=== PATIENT | female | born 1975 | race Caucasian/White ===

== ENCOUNTER 2017-10-21 07:45 | Emergency (ER) | payer OTHER ==
[~2017-10-21] VITALS: Ht 157.5 cm; Wt 106.1 kg
[~2017-10-21 07:45] MED LIST: CYCLOBENZAPRINE10 MG PO; LOTRIMIN AF24 GM TOP; METFORMIN HCL500 MG PO; NAPROXEN500 MG PO; PARLODEL2.5 MG PO
[2017-10-21] MEDS ORDERED: NAPROSYN500 MG PO (08:02)
[2017-10-26] MEDS ORDERED: TYLENOL WITH C1 EAC1 PO (15:39)
[2017-12-14] MEDS ORDERED: NAPROXEN500 MG PO (13:44)
[2017-12-14] MEDS ORDERED: MULTI VITAMIN1 EACH PO (13:45)
== END 2017-10-21 08:12 | disposition home or self-care (01) ==
LOC: ED 07:45
PROC: 2W38X1Z Immobilization of Right Upper Extremity using Splint (ICD-10-PCS; principal; 2017-10-21)
DX: M65.4 Radial styloid tenosynovitis [de Quervain] (principal); Z88.5 Allergy status to narcotic agent; Z88.8 Allergy status to other drugs, medicaments and biological substances; Z79.899 Other long term (current) drug therapy
CPT/HCPCS: 29125; 99282

== ENCOUNTER 2017-11-23 09:05 | Observation (INO) | payer OTHER ==
[~2017-11-23] VITALS: Ht 157.5 cm; Wt 112.0 kg
[~2017-11-23 09:05] MED LIST changes: +NAPROSYN500 MG PO; +TYLENOL WITH C1 EAC1 PO
--- NOTE | 2017-11-24 09:37 | OR ---
[facility] [address] [place], [place] [address] Signed DATE OF OPERATION: 11/23/2017 SURGEON: Demetria Rainey MD PREOPERATIVE DIAGNOSES: 1. Positive superior anterior margin left breast cancer, upper outer quadrant. 2. Wound abscess and breast cellulitis. POSTOPERATIVE DIAGNOSES: 1. Positive superior anterior margin left breast cancer, upper outer quadrant. 2. Wound abscess and breast cellulitis. PROCEDURES: 1. Re-excision superior anterior margin, left breast lumpectomy site. 2. Deep wound cultures. ESTIMATED BLOOD LOSS: None. INDICATIONS: Jessica is a 42-year-old female, who came to us for her left breast lumpectomy and sentinel lymph node biopsy just a couple of weeks ago. She thought the Tylenol with Codeine #4 was too strong and was using just her Tylenol with good results. 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 The pathologist called and he said on the superior anterior margin, there was a very tiny area that came out positive. In addition, the two sentinel lymph nodes came back, one was completely uninvolved, the other had 4 tiny . I had seen Jessica and her mom in the office the week before last prior to being out of town. Her wound was healing well and we had planned to take her back for re-excision of that superior anterior margin. In the meantime, she called the office yesterday and was worried about some surrounding erythema and a little bit of drainage from the wound. I explained to Jessica, I wanted you to come into the hospital this morning for surgery and we could open that wound, evacuate all the fluid and excise the superior margin. After reviewing the intraoperative findings, I decided I was going to keep her in the hospital at least overnight, maybe longer to see improvement in the cellulitis and make sure she does not have any temperature spikes. I met with Jessica and her mom in our preop area and we reviewed our breast exam and I explained to them my concern. We marked that left breast appropriately. After this conversation, she was taken into the operating room. Electronically Signed By: DEMETRIA RAINEY MD 11/24/17 0937 PATIENT NAME: JESSICA HOWARD OPERATIVE REPORT DATE OF : 75 REPORT #: [id number] PHYSICIAN: DEMETRIA RAINEY MD PCP: YOLANDA GUERRA PAC REPORT IS CONFIDENTIAL AND NOT TO BE RELEASED WITHOUT AUTHORIZATION [facility] [address] [place], [place] [address] Signed PROCEDURE NOTE: Jessica was taken into the operating room and placed in the supine position under general endotracheal tube anesthesia. She was given preoperative antibiotics along with subcutaneous heparin. SCDs were utilized. She was then prepped and draped in the usual sterile fashion. We sharply opened her previous incision and evacuated at least 5 mL or more of a turbid fluid. Cultures were taken deep in the wound. We examined the extend of the wound and then we used our 20 blade knife to excise the skin and underlying breast tissue all the way on the superior anterior margin all the way down to the bottom of that wound. That specimen was then marked appropriately and passed off the field. Hemostasis was easily achieved with the help of the cautery. Local anesthetic was injected into the wound. We used 3-0 Monocryl subcuticular interrupted sutures to close the medial lateral aspect of that curvilinear incision. The midportion incision was left open. We used full-strength Dakin soaked gauze to pack that wound completely. This was covered with a dry ABD and tape. After this, Jessica was awakened from anesthesia, extubated in the OR, and taken to recovery room in stable condition. Demetria Rainey MD ALB/MODL /[id number] cc: AMY Myers MD Copies: DEMETRIA RAINEY MD ~ Electronically Signed By: DEMETRIA RAINEY MD 11/24/17 0937 PATIENT NAME: JESSICA HOWARD OPERATIVE REPORT DATE OF : 75 REPORT #: [id number] PHYSICIAN: DEMETRIA RAINEY MD PCP: YOLANDA GUERRA PAC REPORT IS CONFIDENTIAL AND NOT TO BE RELEASED WITHOUT AUTHORIZATION
[2017-11-24] MEDS ORDERED: CLEOCIN HCL300 MG PO (10:42)
[2017-11-24] MEDS ORDERED: SODIUM CHLORI1000 ML IRRIGATION (10:44)
[2017-11-24] MEDS ORDERED: MUPIROCIN22 GM TOP (10:45)
--- NOTE | 2017-11-26 11:36 | DS ---
[facility] [address] [place] [place] [address] Signed ADMISSION DATE: 11/23/2017 DISCHARGE DATE: 11/24/2017 FINAL DIAGNOSES: 1. Left breast cancer. 2. Left breast abscess/cellulitis. PROCEDURES: 1. Incision and drainage, left breast. 2. Re-excision superior anterior margin, left breast, upper outer quadrant. HISTORY OF PRESENT ILLNESS: Krupa is a 42-year-old female, who came to us with a left breast cancer and underwent her lumpectomy with sentinel lymph node biopsy. Unfortunately, the superior anterior margin was positive, although was very very slight according to the pathologist. We had made plans in the office to bring Krupa back for re-excision of that margin. The day before her surgery, she called to say that there was drainage from the center portion of the wound along with erythema around the nipple areolar complex as well as inferiorly to the nipple areolar complex. I explained to Krupa that she should maintain her OR appointment the following day. In the preop area, I met with Krupa and her mom and sure enough she had a very thin area in the center of the wound allowing for her infection. I explained to Krupa and her mom, we would take her to the operating room, we will take cultures and clean that out and we take the margin superior and anteriorly. We also discussed staying in a hospital at least overnight for some IV antibiotics and wound care and if we were happy the next day or the day after, we would allow Krupa to go home with her mom and her family with ongoing wound care at home and p.o. antibiotics. They had expressed understanding and wished to proceed. HOSPITAL COURSE: Krupa was taken into the operating room and we sharply opened up the wound and took our deep wound cultures. It was full of at least 5 mL of turbid fluid consistent with her infection. We then excised the superior portion of that skin along with a wedge of skin just under a centimeter thick along the entire anterior margin all the way down to the bottom of the wound. That was marked appropriately and passed off the field. We used Dakin soaked gauze to pack the wound and brought her into the hospital overnight. She received Ancef for the procedure and clindamycin overnight IV. Of course, the cultures are still pending this morning. The cultures and the Gram-stain are still pending this morning. In the meantime, Krupa is doing wonderful. I had a long discussion with Krupa and her mother as well as her nurse, Judy. They feel very comfortable going home, doing the wound care along with p.o. clindamycin. She has been thoroughly instructed on the wound care. She is going to use Dakin's for 3 more days and switch over to saline and Electronically Signed By: DEMETRIA RAINEY MD 11/26/17 1136 PATIENT NAME: RAJANI HOWARD DISCHARGE SUMMARY DATE OF : 75 REPORT #: [id number] PHYSICIAN: DEMETRIA RAINEY MD PCP: YOLANDA GUERRA PAC REPORT IS CONFIDENTIAL AND NOT TO BE RELEASED WITHOUT AUTHORIZATION [address] [address] Signed she will cover that with just a dry ABD in her braw and she will use her Tylenol with Codeine #4 before the dressing changes. We used Bactroban ointment around that wound as well. DISCHARGE PLANS AND MEDICATIONS: Krupa will be discharged home as above. She will do her wound care as above with the Bactroban ointment and shower with soap and water directly into that wound. She is welcome to perform her activities of daily living including walking up and down stairs and showering and bathing as needed. She will follow her regular diet. She should not lift over about 25 pounds or so. Of course, with an open wound, we will have to keep her off work for now. Eventually, this will heal in secondarily. She will actually have a good cosmetic result and in due time she is going to need to be referred to medical oncologist and the radiation oncologist. I have reviewed this with Krupa and her mom. They have expressed understanding and agreed the above plan. Demetria Rainey MD ALB/MODL /[id number] cc: Bolivar Guerra Copies: ~ Electronically Signed By: DEMETRIA RAINEY MD 11/26/17 1136 PATIENT NAME: RAJANI HOWARD DISCHARGE SUMMARY DATE OF : 75 REPORT #: [id number] PHYSICIAN: DEMETRIA RAINEY MD PCP: YOLANDA GUERRA PAC REPORT IS CONFIDENTIAL AND NOT TO BE RELEASED WITHOUT AUTHORIZATION
[2017-12-14] MEDS ORDERED: NAPROXEN500 MG PO (13:44)
[2017-12-14] MEDS ORDERED: MULTI VITAMIN1 EACH PO (13:45)
== END 2017-11-24 11:20 | disposition home or self-care (01) ==
LOC: DS 09:05 → MS 09:06 → DS 09:06 → MS 11-24 11:20
PROVIDERS: ADMIT Colon & Rectal Surgery
PROC: 0HBU0ZZ Excision of Left Breast, Open Approach (ICD-10-PCS; principal; 2017-11-23 10:30)
DX: C50.412 Malignant neoplasm of upper-outer quadrant of left female breast (principal); T81.4XXA Infection following a procedure, initial encounter; N61.1 Abscess of the breast and nipple; E78.5 Hyperlipidemia, unspecified; E66.01 Morbid (severe) obesity due to excess calories; R73.01 Impaired fasting glucose; Z68.42 Body mass index [BMI] 45.0-49.9, adult; Z79.899 Other long term (current) drug therapy; Z17.0 Estrogen receptor positive status [ER+]; Z88.5 Allergy status to narcotic agent; Z79.1 Long term (current) use of non-steroidal anti-inflammatories (NSAID)
CPT/HCPCS: 00404; 36415; 80048; 83735; 84100; 84703; 85025; 87070; 87075; 87077; 87186; 87205; 88307; 96361; 96365; 96366; 96375; 96376; G0378; J0690; J1170; J1644; J2250; J2405; J2704; J2765; J3010; J7120

== ENCOUNTER 2019-07-16 21:29 | Emergency (ER) | payer OTHER ==
[~2019-07-16] VITALS: Ht 157.5 cm; Wt 102.1 kg
--- OUTSIDE RECORDS SUMMARY | ~2019-07-16 | XMS | Encounter Summary ---
Demographics + + + | Address | [address] | | | [place] [address] | + + + | Home Phone | | + + + | Preferred Language | Unknown | + + + | Marital Status | Single | + + + | Holiness Affiliation | Unknown | + + + | Race | Unknown | + + + | Ethnic Group | Unknown | + + + Author + + + | Author | [facility] | | | and [place] | + + + | Organization | [facility] | | | and [place] | + + + | Address | Unknown | + + + | Phone | Unavailable | + + + Support + + + + + | Name | Relationship | Address | Phone | + + + + + | Orly Patel | ECON | [address] | | | | | [place], [place] | | | | | [address] | | + + + + + Care Team Providers + +------+ + | Care Animal Rescuer Name | Role | Phone | + +------+ + | Fely Paris | PCP | | | PA | | | + +------+ + Encounter Details +--------+ + + + + | Date | Type | Department | Care Team | Description | +--------+ + + + + | 12/19/ | Imaging | [facility] | Provider, | | | 2018 | Exam | [facility] | Historical, MD [address] | | | | | [address]ING | [address] | | | | | [phone] | [place] [address] | | +--------+ + + + + Social History + +-------+ +--------+------+ | Tobacco Use | Types | Packs/Day | Years | Date | | | | | Used | | + +-------+ +--------+------+ | Never Assessed | | | | | + +-------+ +--------+------+ + + + | Sex Assigned at | Date Recorded | | | | + + + | Not on file | | + + + + + + + | Job Start Date | Occupation | Industry | + + + + | Not on file | Not on file | Not on file | + + + + + + + + | Travel History | Travel Start | Travel End | + + + + + + | No recent travel history available. | + + documented as of this encounter Plan of Treatment +--------+ + + + + | Date | Type | Specialty | Care Team | Description | +--------+ + + + + | 06/09/ | Appointment | Radiation Oncology | Yin Alex | | | 2019 | | | MD [facility] [address] | | | | | | [place] | | | | | | [address] | | | | | | | | +--------+ + + + + documented as of this encounter Procedures + +--------+ + + + | Procedure Name | Priori | Date/Time | Associated Diagnosis | Comments | | | ty | | | | + +--------+ + + + | KASSIDY TOMOSYN | Routin | 02/08/2017 | | Results for this | | SCREENING BILATERAL | e | 8:35 AM | | procedure are in the | | | | PDT | | results section. | + +--------+ + + + documented in this encounter Results KASSIDY Tomosynthesis Screening Bilateral (02/08/2017 8:35 AM PDT) + + | Specimen | + + | | + + + + + | Narrative | Performed At | + + + | External films for comparison only | [facility] | | | | | No results will be in the chart. | | + + + + +---------+ + + | Performing | Address | City/State/Zipcode | Phone Number | | Organization | | | | + +---------+ + + | [facility] | | | | + +---------+ + + documented in this encounter Visit Diagnoses Not on filedocumented in this encounter"
--- OUTSIDE RECORDS SUMMARY | ~2019-07-16 | XMS | Encounter Summary ---
Demographics + + + | Address | [address] | | | [place] [address] | + + + | Home Phone | | + + + | Preferred Language | Unknown | + + + | Marital Status | Single | + + + | Jew Affiliation | Unknown | + + + | Race | Unknown | + + + | Ethnic Group | Unknown | + + + Author + + + | Author | [facility] | | | and [place] | + + + | Organization | [facility] | | | and [place] [...] [place], [place] | | | | | [address] | | + + + + + Care Team Providers + +------+ + | Care Grapple Crew Leader Name | Role | Phone | + [...] [address] | | | | | [phone] | [place] [address] | | +--------+ + + + + [...] | | | MD [facility] [address] | | | | | | [place] | | | | | | [address] | | | | | | | | +--------+ + + + + documented as of this encounter Procedures + +--------+ + + + | Procedure Name | Priori | Date/Time | Associated Diagnosis | Comments | | | ty | | | | + +--------+ + + + | US BREAST LIMITED | Routin | 10/02/2017 | | Results for this | | LEFT | e | 3:05 PM | | procedure are in the | | | | PST | | results section. | + +--------+ + + + documented in this encounter Results US Breast Limited Left (10/02/2017 3:05 PM PST) + + | Specimen | + + [...]
--- OUTSIDE RECORDS SUMMARY | ~2019-07-16 | XMS | Encounter Summary ---
Demographics + + + | Address | [address] | | | [place] [address] | + + + | Home Phone | | + + + | Preferred Language | Unknown | + + + | Marital Status | Single | + + + | Voodoo Affiliation | Unknown | + + + | Race | Unknown | + + + | Ethnic Group | Unknown | + + + Author + + + | Author | [facility] | | | and [place] | + + + | Organization | [facility] | | | and [place] [...] [place], [place] | | | | | [address] | | + + + + + Care Team Providers + +------+ + | Care Software Qa System Specialist Name | Role | Phone | + [...] [address] | | | | | [phone] | [place] [address] | | +--------+ + + + + [...] [place] | | | | | | [address] | | | | | | | [...]
--- OUTSIDE RECORDS SUMMARY | ~2019-07-16 | XMS | Encounter Summary ---
Demographics + + + | Address | [address] | | | [place] [address] | + + + | Home Phone | | + + + | Preferred Language | Unknown | + + + | Marital Status | Single | + + + | Oriental Orthodox Affiliation | Unknown | + + + | Race | Unknown | + + + | Ethnic Group | Unknown | + + + Author + + + | Author | [facility] | | | and [place] | + + + | Organization | [facility] | | | and [place] | + + + | Address | Unknown | + + + | Phone | Unavailable | + + + Support + + + + + | Name | Relationship | Address | Phone | + + + + + | Orly Patel | ECON | [address] | | | | | [place] | | | | | [address] | | + + + + + Care Team Providers + +------+ + | Care Pyrotechnic Assembler Name | Role | Phone | + +------+ + | Fely Paris | PCP | | | PA | | | + +------+ + Reason for Visit Evaluate & Treat (Routine) + +--------+ + + + + | Status | Reason | Specialty | Diagnoses / | Referred By | Referred To | | | | | Procedures | Contact | Contact | + +--------+ + + + + | Authorized | | Radiation | Diagnoses | [facility] | Abi, | | | | Oncology | C50.919 | Radiation | Yin Yuen MD | | | | | (ICD-10-CM) | Oncology | [address] | | | | | - Malignant | Clinic [address] | | | | | neoplasm of | [place] | [place], | | | | | unspecified | [place], | [place] [address] | | | | | site of | [place] | Phone: | | | | | unspecified | [address] | [phone] | | | | | female | Phone: | Fax: | | | | | breast (HCC) | [phone] | [phone] | | | | | Procedures | Fax: | | | | | | [address] | [phone] | | + +--------+ + + + + Encounter Details +--------+ + + + + | Date | Type | Department | Care Team | Description | +--------+ + + + + | 06/09/ | Hospital | [facility] | Yin Alex | Malignant neoplasm | | 2019 | Encounter | [facility] | MD Alpa [address] | of upper-outer | | | | ONCOLOGY CLINIC [address] | [address] [place], [place] | quadrant of left | | | | [place] | [address] | breast in female, | | | | [place] [address] | | estrogen receptor | | | | [phone] | | positive (HCC) | | | | | | (Primary Dx); | | | | | | Encounter for | | | | | | screening mammogram | | | | | | for high-risk | | | | | | patient | +--------+ + + + + Social History + +-------+ +--------+------+ | Tobacco Use | Types | Packs/Day | Years | Date | | | | | Used | | + +-------+ +--------+------+ | Never Smoker | | | | | + +-------+ +--------+------+ + +---+---+---+ | Smokeless Tobacco: | | | | | Never Used | | | | + +---+---+---+ + + +---------+ + | Alcohol Use | Drinks/Week | oz/Week | Comments | + + +---------+ + | No | | | | + + +---------+ + + + + | Sex Assigned at [...] + + documented as of this encounter Last Filed Vital Signs + + + + + | Vital Sign | Reading | Time Taken | Comments | + + + + + | Blood Pressure | 134/84 | 06/09/2019 3:09 PM | | | | | PDT | | + + + + + | Pulse | 71 | 06/09/2019 3:09 PM | | | | | PDT | | + + + + + | Temperature | 37 C (98.6 F) | 06/09/2019 3:09 PM | | | | | PDT | | + + + + + | Respiratory Rate | 16 | 06/09/2019 3:09 PM | | | | | PDT | | + + + + + | Oxygen Saturation | 97% | 06/09/2019 3:09 PM | | | | | PDT | | + + + + + | Inhaled Oxygen | - | - | | | Concentration | | | | + + + + + | Weight | 102.4 kg (225 lb 12 | 06/09/2019 3:09 PM | | | | oz) | PDT | | + + + + + | Height | - | - | | + + + + + | Body Mass Index | 41.02 | 12/19/2017 12:43 PM | | | | | PDT | | + + + + + documented in this encounter Discharge Instructions Patient Instructions Isabella Denson RN - 06/09/2019 3:28 PM PDTAnnual mammogram to be don e in 09/2019 at [facility]. Continue with follow up appointments with Dr. Davis (12/03/2019) Schedule for one year follow up with Dr. Alex. documented in this encounter Medications at Time of Discharge + + + +---------+ + + | Medication | Sig | Dispensed | Refills | Start | End Date | | | | | | Date | | + + + +---------+ + + | cholecalciferol | Take 400 Units by | | 0 | | | | (VITAMIN D-3) 400 | mouth Daily. | | | | | | units capsule | | | | | | + + + +---------+ + + | ergocalciferol | Take 50,000 Units by | | 0 | | | | (VITAMIN D-2) 50,000 | mouth Once a week. | | | | | | units capsule | | | | | | + + + +---------+ + + | Multiple | Take 1 tablet by | | 0 | | | | Vitamins-Minerals | mouth Daily. | | | | | | (MULTIVITAMIN ADULT | | | | | | | PO) | | | | | | + + + +---------+ + + | naproxen | Take 500 mg by mouth | | 0 | | | | (NAPROSYN) 500 mg | 2 times daily (with | | | | | | tablet | breakfast & | | | | | | | dinner). | | | | | + + + +---------+ + + | tamoxifen | Take 1 tablet by | 30 | 3 | 06/09/20 | | | (NOLVADEX) 20 MG | mouth Daily. | tablet | | 19 | | | tabletIndications: | | | | | | | Malignant neoplasm | | | | | | | of upper-outer | | | | | | | quadrant of left | | | | | | | breast in female, | | | | | | | estrogen receptor | | | | | | | positive (HCC) | | | | | | + + + +---------+ + + documented as of this encounter Progress Notes Yin Alex MD - 06/09/2019 3:00 PM PDT Radiation Oncology Follow-up Chief Complaint/ICD10 ICD-10-CM ICD-9-CM 1. 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 She has undergone lumpectomy and sent inel lymph node procedure, tumor size 1.8 cm, grade 1, no LVSI, negative final margin after reexcision for initial positive superior anterior margin, 1/2 sentinel lymph nodes involved with micrometastases. 01/21/2018 - 02/15/2018 Radiation Therapy Completed adjuvant radiation with high tangents, 40.05 Gy in 15 fractions and a 10 Gy in 5 fractions lumpectomy boost Jessica Patel completed radiation 15 months ago, she returns for routine follow-up. She contineus to report frequent fatigue, she describes a disrupted sleep pattern. At time s she will have neck pain and headaches, seems to correlate with stress. Continues to have frequent skin rashes, comes and goes. No concerns about her breast, denies lumps or nodules . Weight is stable. She continues on Tamoxifen, notes hot flashes/night sweats but is tole rating this well. General health: stable Ongoing treatment: tamoxifen 20 mg daily, follows with Dr. Davis in [place]. Review of systems: Constitutional: Reports energy levels are "so-so." Reports night sweats at night "maybe 2- 3 times a week." Denies high fevers, shaking chills, anorexia, nausea, vomiting, weight los s. Appetite without changes. Ear, Nose, Mouth, Throat: Reports scratchy throat for about 2 months, PCP seen last month f or this. Denies odynophagia, dysphagia, or tinnitus. Cardiovascular: Denies shortness of breath, dyspnea on exertion, chest pain, palpitations o r orthopnea. Respiratory: Reports dry cough in mornings which continues. Denies hemoptysis, or sputum pr oduction. Gastrointestinal: Denies abdominal pain, constipation, diarrhea, melena, or bright red bloo d per rectum. Genitourinary: Denies hematuria or dysuria. Musculoskeletal: Reports neck pain which radiated down back on last Sunday; possibly rel ated to stress. Tylenol effective. Denies joint pain or tenderness. Neurologic: Denies headache, visual changes, or numbness/tingling of the extremities. Endocrine: Reports BLE ankle swelling. Denies heat/cold intolerance. Hematologic: Denies spontaneous bruising or bleeding. Integumentary: Reports occasionally getting small spots on bilateral arms "looks like a hea t rash." Denies wounds or other skin concerns. Pain: Denies pain currently. Note: Here for 1 year follow up to review mammogram done at [facility] 10/04/18. My chart: Active Pain assessment: none reported today Current Outpatient Medications Medication Sig Dispense Refill cholecalciferol (VITAMIN D-3) 400 units capsule Take 400 Units by mouth Daily. ergocalciferol (VITAMIN D-2) 50,000 units capsule Take 50,000 Units by mouth Once a wee k. Multiple Vitamins-Minerals (MULTIVITAMIN ADULT PO) Take 1 tablet by mouth Daily. naproxen (NAPROSYN) 500 mg tablet Take 500 mg by mouth 2 times daily (with breakfast & dinner). tamoxifen (NOLVADEX) 20 MG tablet Take 20 mg by mouth Daily. No current facility-administered medications for this encounter. Allergies Allergen Reactions Hydrocodone Nausea Only Adhesive & Tape Rash Patient had reaction to steri-strips Intolerance No active intolerances/contraindications Vitals: 06/09/19 1509 BP: 134/84 Pulse: 71 Resp: 16 Temp: 37 C (98.6 F) Wt Readings from Last 3 Encounters: 06/09/19 102.4 kg (225 lb 12 oz) 06/05/18 104.5 kg (230 lb 6.1 oz) 02/14/18 108.1 kg (238 lb 5.1 oz) Physical Exam: General: Healthy appearing overweight woman in no acute medical distress. KPS: 90 HEENT: Pupils equal, round and reactive to light. No conjunctival icterus or injection. EOM I. Oral, moist mucus membranes. Lymphatic: No cervical, supraclavicular or axillary lymphadenopathy. Cardiovascular: Regular rate and rhythm, no murmur. Pulmonary: Breath sounds heard throughout, no adventitial sounds or increased work of breat carlyn at rest. Extremities: Upper and lower extremities warm and well perfused with no upper or lower extr emity edema. Neurologic: Alert, oriented and appropriated in conversation. CN II-IX grossly intact. Moves all 4 extremities normally with normal gait. Psychiatric: Appropriate. Breast: Exam performed in the presence of a process design chemical engineer. On upright exam breasts appear symm etric bilaterally with no contour abnormalities or malignant appearing skin changes. The le ft breast demonstrates a well-healed surgical incision. On supine exam palpation of the lef t breast demonstrates axillary fibrosis and fibrosis at the site of prior lumpectomy. No di screte mass lesions are identified in either breast. There is no pain with palpation. No n ipple changes. Labs: No recent results. Imaging: Review of relevant imaging reports: 10/04/2018- mammogram done at [facility]. Benign, BIRADS-2 Assessment: ICD-10-CM ICD-9-CM 1. Malignant neoplasm of upper-outer quadrant of left breast in female, estrogen receptor p ositive (HCC) C50.412 174.4 Z17.0 V86.0 Jessica is overall doing well with no bothersome lasting side-effects of radiation. She co ntinues on adjuvant endocrine therapy. Exam today is benign. Mammography also up to date a nd benign. We discussed that her fatigue and general health would improve with better sleep habits and more exercise. Plan: Annual mammogram to be done in 09/2019 at [facility]. Continue with follow up appointments with Dr. Davis (12/03/2019) Schedule for one year follow up with Dr. Alex. Self-care recommendations: sleep & exercise Thank you for allowing me to participate in the care of Jessica Patel. If you should nunez ve any questions regarding this evaluation, please do not hesitate to contact me. Yin Alex M.D. Radiation Oncologist Department of Radiation Oncology [facility] Office: [phone] signed by Yin Alex MD at 07/13/2019 7:37 [address]documented in this encounter Plan of Treatment +--------+ + + + + | Date | Type | Specialty | Care Team | Description | +--------+ + + + + | 06/09/ | Appointment | Radiation Oncology | AbiLouiseen | | | 2019 | | | MD Alpa [address] | | | | | | [place] | | | | | | [address] | | | | | | | | +--------+ + + + + + +---------+--------+ + + | Name | Type | Priori | Associated Diagnoses | Order Schedule | | | | ty | | | + +---------+--------+ + + | [facility] Tomosynthesis | Imaging | Routin | Encounter for | Expected: | | Screening Bilateral | | e | screening mammogram | 10/06/2019, Expires: | | | | | for high-risk | 08/09/2020 | | | | | patient | | + +---------+--------+ + + documented as of this encounter Visit Diagnoses + + | Diagnosis | + + | Malignant neoplasm of upper-outer quadrant of left breast in female, estrogen receptor | | positive (HCC) - Primary | + + | Encounter for screening mammogram for high-risk patient | + + documented in this encounter
--- OUTSIDE RECORDS SUMMARY | ~2019-07-16 | XMS | Encounter Summary ---
Demographics + + + | Address | [address] | | | [place] [address] | + + + | Home Phone | | + + + | Preferred Language | Unknown | + + + | Marital Status | Single | + + + | Jain Affiliation | Unknown | + + + | Race | Unknown | + + + | Ethnic Group | Unknown | + + + Author + + + | Author | [facility] | | | and [place] | + + + | Organization | [facility] | | | and [...] [place] | | | | | [address] | | + + + + + Care Team Providers + +------+ + | Care Hand Sander Name | Role | Phone | + +------+ + | Fely Paris | PCP | | | PA | | | + +------+ + Encounter Details +--------+ + + + + | Date | Type | Department | Care Team | Description | +--------+ + + + + | 02/15/ | Documentati | [facility] | Yin Alex | | | 2018 | on | [facility] RAD[facility] | MD Alpa [address] | | | | | ONCOLOGY CLINIC [address] | [facility] [place] | | | | | [address] [place] | [address] | | | | | [place] [address] | | | | | | [phone] | | | +--------+ + + + [...] | | 2019 | | | MD Vinay [address] | | | | | | [address] [place], [place] | | | | | | [id number] | | | | | | | | +--------+ + + + + documented as of this encounter Visit Diagnoses + + | Diagnosis | + + | Malignant neoplasm of upper-outer quadrant of left breast in female, 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
--- OUTSIDE RECORDS SUMMARY | ~2019-07-16 | XMS | Encounter Summary ---
Demographics + + + | Address | [address] | | | [place] [address] | + + + | Home Phone | | + + + | Preferred Language | Unknown | + + + | Marital Status | Single | + + + | Scientology Affiliation | Unknown | + + + | Race | Unknown | + + + | Ethnic Group | Unknown | + + + Author + + + | Author | [facility] | | | and [place] | + + + | Organization | [facility] | | | and [place] | + + + | Address | Unknown | + + + | Phone | Unavailable | + + + Support + + + + + | Name | Relationship | Address | Phone | + + + + + | Orly Patel | ECON | [address] | | | | | [place] | | | | | [address] | | + + + + + Care Team Providers + +------+ + | Care Plastics Engineering Teacher Name | Role | Phone | + +------+ + | Fely Paris | PCP | | | PA | | | + +------+ + Reason for Visit + + + | Reason | Comments | + + + | Under Treatment | | + + + | Breast Cancer | | + + + Encounter Details +--------+ + + + + | Date | Type | Department | Care Team | Description | +--------+ + + + + | 02/07/ | Hospital | [facility] | Yin Alex | Malignant neoplasm | | 2018 | Encounter | MED CTR RADIATION | MD Alpa [address] | of upper-outer | | | | ONCOLOGY CLINIC [address] | [address] [place], [place] | quadrant of left | | | | [place] [facility] | [address] | breast in female, | | | | [place] [address] | | estrogen receptor | | | | [phone] | | positive (HCC) | | | | | | (Primary Dx) | +--------+ + + + + Social [...] + + + | Blood Pressure | 139/76 | 02/07/2018 11:46 AM | | | | | PDT | | + + + + + | Pulse | 77 | 02/07/2018 11:46 AM | | | | | PDT | | + + + + + | Temperature | 37.1 C (98.7 F) | 02/07/2018 11:46 AM | | | | | PDT | | + + + + + | Respiratory Rate | 16 | 02/07/2018 11:46 AM | | | | | PDT | | + + + + + | Oxygen Saturation | 98% | 02/07/2018 11:46 AM | | | | | PDT | | + + + + + | Inhaled Oxygen | - | - | | | Concentration | | | | + + + + + | Weight | 110.4 kg (243 lb 6.2 | 02/07/2018 11:46 AM | | | | oz) | PDT | | + + + + + | Height | - | - | | + + + + + | Body Mass Index | 44.22 | 12/19/2017 12:43 PM | | | | | PDT | | + + + + + documented in this encounter Medications at Time of Discharge + + + +---------+--------+ + | Medication | Sig | Dispensed | Refills | Start | End Date | | | | | | Date | | + + + +---------+--------+ + | Multiple | Take 1 tablet by | | 0 | | | | Vitamins-Minerals | mouth Daily. | | | | | | (MULTIVITAMIN ADULT | | | | | | | PO) | | | | | | + + + +---------+--------+ + | naproxen | Take 500 mg by mouth | | 0 | | | | (NAPROSYN) 500 mg | 2 times daily (with | | | | | | tablet | breakfast & | | | | | | | dinner). | | | | | + + + +---------+--------+ + | tamoxifen | Take 20 mg by mouth | | 0 | | | | (NOLVADEX) 20 MG | Daily. | | | | 9 | | tablet | | | | | | + + + +---------+--------+ + documented as of this encounter Progress Notes Jack Armas RN - 02/07/2018 11:45 AM PDTFormatting of this note might be different fro m the original. 02/07/18 1144 Gastrointestinal Constipation 0 - Grade 0 Diarrhea 0 - Grade 0 Nausea 0 - Grade 0 Vomiting 0 - Grade 0 General Disorders and Administration Site Conditions Fatigue 1 - Grade 1 Metabolism and Nutrition Anorexia 0 - Grade 0 Skin and Subcutaneous Tissue Palmar-Plantar Erythrodysesthesia Syndrome 0 - Grade 0 Performance Status Karnofsky Performance Score 100% Yin Recio MD - 02/07/2018 8:51 AM PDT Radiation Oncology Weekly On Treatment Note Diagnosis: ICD-10-CM ICD-9-CM 1. Malignant neoplasm of upper-outer quadrant of left breast in female, estrogen receptor p ositive (HCC) C50.412 174.4 Z17.0 V86.0 Reason for visit: On treatment evaluation Radiation technical factors: Dose Delivered Dose Planned Fractions Delivered 3738 cGy 4005 cGy 14/15 0 cGy 1000 cGy 0/5 Images were reviewed this week and results of the review have been recorded in [facility]. Corre ctions were applied as necessary. Allergies Allergen Reactions Hydrocodone Nausea Only Adhesive & Tape Rash Patient had reaction to steri-strips Current Outpatient Prescriptions on File Prior to Encounter Medication Sig Dispense Refill Multiple Vitamins-Minerals (MULTIVITAMIN ADULT PO) Take 1 tablet by mouth Daily. naproxen (NAPROSYN) 500 mg tablet Take 500 mg by mouth 2 times daily (with breakfast & dinner). tamoxifen (NOLVADEX) 20 MG tablet Take 20 mg by mouth Daily. No current facility-administered medications on file prior to encounter. Pain assessment: Location: 0 Pain Level: PAIN PROG PAIN LEVEL: 0 Wt Readings from Last 3 Encounters: 02/07/18 110.4 kg (243 lb 6.2 oz) 01/31/18 111.2 kg (245 lb 2.4 oz) 01/24/18 111.2 kg (245 lb 2.4 oz) Vitals: 02/07/18 1146 BP: 139/76 Pulse: 77 Resp: 16 Temp: 37.1 C (98.7 F) TempSrc: Temporal SpO2: 98% Weight: 110.4 kg (243 lb 6.2 oz) Physical Exam Constitutional: She appears well-developed and well-nourished. Neurological: She is alert. Skin: No rash noted. There is erythema (faint). Psychiatric: She has a normal mood and affect. Physician Assessment: Krupa continues to do well with radiation. She reports good energy. Mild skin erythema wi thout pain. Toxicities reviewed in nursing note. Disposition: Continue radiation treatment as planned. Continue skin care with emollient lotion . Yin Ricci MD Radiation Oncologist documented in thi s encounter Plan of Treatment +--------+ + + + + | Date | Type | Specialty | Care Team | Description | +--------+ + + + + | 06/09/ | Appointment | Radiation Oncology | Yin Alex | | | 2019 | | | MD [address] | | | | | | [place], [place] | | | | | | [address] | | | | | | | | +--------+ + + + + documented as of this encounter Visit Diagnoses + + | Diagnosis | + + | Malignant neoplasm of upper-outer quadrant of left breast in female, 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
--- OUTSIDE RECORDS SUMMARY | ~2019-07-16 | XMS | Encounter Summary ---
Demographics + + + | Address | [address] | | | [place] [address] | + + + | Home Phone | | + + + | Preferred Language | Unknown | + + + | Marital Status | Single | + + + | Denominational Affiliation | Unknown | + + + | Race | Unknown | + + + | Ethnic Group | Unknown | + + + Author + + + | Author | [facility] | | | and [place] | + + + | Organization | [facility] | | | and [...] [place] | | | | | [address] | | + + + + + Care Team Providers + +------+ + | Care Clinical Informatics Director Name | Role | Phone | + +------+ + | Fely Paris | PCP | | | PA | | | + +------+ + Reason for Visit + + + | Reason | Comments | + + + | Follow-up | | + + + | Breast Cancer | | + + + Evaluate & Treat (Routine) +--------+ + + + + + | Status | Reason | Specialty | Diagnoses / | Referred By | Referred To | | | | | Procedures | Contact | Contact | +--------+ + + + + + | Closed | Specialty | Radiation | Diagnoses | | Ricecilio, | | | Services | Oncology | Malignant | Ryan, | Yin Yuen MD | | | Required | | neoplasm of | Mihir C, | [address] | | | | | upper-outer | MD [address] | | | | | quadrant of | [address] | [place], | | | | | left breast | [place], | [place] [address] | | | | | in female, | [place] [address] | Phone: | | | | | estrogen | Phone: | [phone] | | | | | receptor | [phone] | Fax: | | | | | positive | Fax: | [phone] | | | | | (HCC) | [phone] | | +--------+ + + + + + Encounter Details +--------+ + + + + | Date | Type | Department | Care Team | Description | +--------+ + + + + | 01/02/ | Hospital | [facility] | Yin Alex | Malignant neoplasm | | 2018 | Encounter | MED CTR RADIATION | MD Alpa [address] | of upper-outer | | | | ONCOLOGY CLINIC [address] | [place], [place] | quadrant of left | | | | [address] | [address] | breast in female, | | | | [place] [address] | | estrogen receptor | | | | [phone] | | positive (HCC) | | | [...] + + + | Blood Pressure | 138/90 | 01/02/2018 11:12 AM | | | | | PDT | | + + + + + | Pulse | 62 | 01/02/2018 11:12 AM | | | | | PDT | | + + + + + | Temperature | 36.6 C (97.8 F) | 01/02/2018 11:12 AM | | | | | PDT | | + + + + + | Respiratory Rate | 16 | 01/02/2018 11:12 AM | | | | | PDT | | + + + + + | Oxygen Saturation | 97% | 01/02/2018 11:12 AM | | | | | PDT | | + + + + + | Inhaled Oxygen | - | - | | | Concentration | | | | + + + + + | Weight | 111.7 kg (246 lb 4.1 | 01/02/2018 11:12 AM | | | | oz) | PDT | | + + + + + | Height | - | - | | + + + + + | Body Mass Index | 44.74 | 12/19/2017 12:43 PM | | | [...] as of this encounter Progress Notes Yin Pattreson MD - 01/02/2018 11:14 AM PDT Radiation Oncology Follow-up Chief Complaint/ICD10 ICD-10-CM ICD-9-CM 1. Malignant neoplasm of upper-outer quadrant of left breast in female, estrogen receptor p ositive (HCC) C50.412 174.4 Z17.0 V86.0 History of Present Illness: Krupa is a 42 year old woman recently diagnosed with left breast cancer. Mucinous carcinom a pathologic stage IA, T1c N1mi. She has undergone lumpectomy and sentinel lymph node proce dure, tumor size 1.8 cm, grade 1, no LVSI, negative final margin after reexcision for initia l positive superior anterior margin, 1/2 sentinel lymph nodes involved with micrometastases. -Initially seen in consultation on 12/19/17. She has been experiencing slow wound healing wi th lumpectomy cavity ultimately) by secondary intention. Over the past few weeks she and he r mother happy to report that the wound has now closed. She denies breast pain swelling or redness. -Previous consultation with Dr. Davis with recommendation for adjuvant endocrine ther apy -Genetic testing performed at consultation 12/19/17. No known germ line mutations were identi fied. Variant of uncertain significance identified in the APC gene. Results discussed with Krupa in her mother. ROS Constitutional: Denies fatigue. Denies high fevers, shaking chills, anorexia, nausea, vomit ing, weight loss, or night sweats. Appetite without changes. Ear, Nose, Mouth, Throat: Denies odynophagia, dysphagia, or tinnitus. Cardiovascular: Denies shortness of breath, dyspnea on exertion, chest pain, palpitations o r orthopnea. Respiratory: Reports occasional cough. Denies hemoptysis, or sputum production. Gastrointestinal: Denies abdominal pain, constipation, diarrhea, melena, or bright red bloo d per rectum. Genitourinary: Denies hematuria or dysuria. Musculoskeletal: Denies joint pain or tenderness. Neurologic: Denies headache, visual changes, or numbness/tingling of the extremities. Endocrine: Denies peripheral edema or heat/cold intolerance. Hematologic: Denies spontaneous bruising or bleeding. Integumentary: Denies rash, wounds or other skin concerns. Pain: Denies pain. Pain assessment: Location: NA Pain Level: PAIN PROG PAIN LEVEL: 0 Current Outpatient Prescriptions Medication Sig Dispense Refill Multiple Vitamins-Minerals (MULTIVITAMIN [...] to steri-strips Intolerance No active intolerances/contraindications Vitals: 01/02/18 1112 BP: 138/90 Pulse: 62 Resp: 16 Temp: 36.6 C (97.8 F) Wt Readings from Last 3 Encounters: 01/31/18 111.2 kg (245 lb 2.4 oz) 01/24/18 111.2 kg (245 lb 2.4 oz) 01/02/18 111.7 kg (246 lb 4.1 oz) Physical Exam: General: Healthy appearing woman in no acute medical distress. KPS: 90 HEENT: Pupils equal, round and reactive to light. No conjunctival icterus or injection. EOM I. Oral, moist mucus membranes. Lymphatic: No cervical, supraclavicular or axillary lymphadenopathy. Cardiovascular: Regular rate and rhythm, no murmur. Pulmonary: Breath sounds heard throughout, no adventitial sounds or increased work of breat carlyn at rest. Abdomen: Soft, non-tender, no masses or organomegaly detected. Extremities: Upper and lower extremities warm and well perfused with no upper or lower extr emity edema. Neurologic: Alert, oriented and appropriated in conversation. CN II-IX grossly intact. Moves all 4 extremities normally with normal gait. Psychiatric: Appropriate. Breast: Exam performed in the presence of a energy derivatives trader. On upright exam breasts appear symm etric bilaterally with no contour abnormalities or malignant appearing skin changes. The le ft breast demonstrates a now closed surgical incision. Labs: No recent results. Imaging: No recent results. Assessment & Plan: ICD-10-CM ICD-9-CM 1. Malignant neoplasm of upper-outer quadrant of left breast in female, estrogen receptor p ositive (HCC) C50.412 174.4 Z17.0 V86.0 Krupa is a 42 year old woman recently diagnosed with left breast cancer. Mucinous carcinom a pathologic stage IA, T1c N1mi. She has undergone lumpectomy and sentinel lymph node proce dure, tumor size 1.8 cm, grade 1, no LVSI, negative final margin after reexcision for initia l positive superior anterior margin, 1/2 sentinel lymph nodes involved with micrometastases. She is prepared to proceed with radiation treatment, lumpectomy cavity wound fully healed. Genetic testing did not demonstrate any known germ line mutations, the variant of undetermi akanksha significance discussed with the patient and her family.. We reviewed the procedures inv olved in radiation treatment planning and delivery. I also discussed the potential short an d long-term side effects of radiation. We have opted for whole breast radiation utilizing h igh tangents and hypo-fractionation. This will provide coverage of the majority of the axil la. Lumpectomy cavity boost will follow. Total dose 50.05 Gy in 20 fractions. She will re turn for CT simulation next week. Dr. Davis has already initiated adjuvant endocrine therapy with tamoxifen, she is tolerating this well. Thank you for allowing me to participate in the care of Jessica Patel. If you should nunez ve any questions regarding this evaluation, please do not hesitate to contact me. Yin Steele M.D. Radiation Oncologist Department of Radiation Oncology [facility] Office: [phone] CC: Patient Care Team: AMY Silver as PCP - General (Physician Asst - Certified) Mihir Davis MD as Consulting Physician (Medical Oncology) Hung Reid MD (Specialist/Technologist,Other - Pole Sander Operator) Yin Patterson MD as Physician (Radiation Oncology) documented in thi s encounter Plan of Treatment +--------+ + + + + | Date | Type | Specialty | Care Team | Description | +--------+ + + + + | 06/09/ | Appointment | Radiation Oncology | Yin Alex | | | 2019 | | | MD Vinay Yu[address] | | | | | | [address] [place], [place] | | | | | | [address] | | | | | | | | +--------+ + + + + documented as of this encounter Visit Diagnoses + + | Diagnosis | + + | Malignant neoplasm of upper-outer quadrant of left breast in female, 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
--- OUTSIDE RECORDS SUMMARY | ~2019-07-16 | XMS | Encounter Summary ---
Demographics + + + | Address | [address] | | | [place] [address] | + + + | Home Phone | | + + + | Preferred Language | Unknown | + + + | Marital Status | Single | + + + | Sikhism Affiliation | Unknown | + + + | Race | Unknown | + + + | Ethnic Group | Unknown | + + + Author + + + | Author | [facility] | | | and [place] | + + + | Organization | [facility] | | | and [place] | + + + | Address | Unknown | + + + | Phone | Unavailable | + + + Support + + + + + | Name | Relationship | Address | Phone | + + + + + | Orly Patel | ECON | [address] | | | | | [place], [place] | | | | | [address] | | + + + + + Care Team Providers + +------+ + | Care Industry Segment Specialist Name | Role | Phone | + +------+ + PCP | Unavailable | + +------+ + Reason for Referral Evaluate & Treat (Routine) +--------+ + + + + + | Status | Reason | Specialty | Diagnoses / | Referred By | Referred To | | | | | Procedures | Contact | Contact | +--------+ + + + + + | Closed | Specialty | Radiation | Diagnoses | | Abi, | | | Services | Oncology | Malignant | Ryan, | Yin Yuen MD | | | Required | | neoplasm of | Mihir Parisi, | [address] | | | | | upper-outer | [address] | | | | | quadrant of | [address] | [place], | | | | | left breast | [place], | [place] [address] | | | | | in female, | [address] | Phone: | | | | | estrogen | Phone: | [phone] | | | | | receptor | [phone] | Fax: | | | | | positive | Fax: | [phone] | | | | | ([facility]) | [phone] | | +--------+ + + + + + Encounter Details +--------+ + + + + | Date | Type | Department | Care Team | Description | +--------+ + + + + | 12/14/ | Orders Only | [facility] | Ryan, | Malignant neoplasm | | 2018 | | MED CTR PROVIDER | Mihir Parisi MD [address] | of upper-outer | | | | ONCOLOGY [address] [place] | quadrant of left | | | | [place], | [place] [address] | breast in female, | | | | [place] [address] | [phone] | estrogen receptor | | | | [phone] | | positive (HCC) | +--------+ + + + + Social [...] | | | | | | [place], [place] | | | | | | [address] | | | | | | | | +--------+ + + + + + + +--------+ + + | Name | Type | Priori | Associated Diagnoses | Order Schedule | | | | ty | | | + + +--------+ + + | * [facility] | Outpatient | Routin | Malignant neoplasm | Ordered: 12/14/2017 | | Oncology - AMB | Referral | e | of upper-outer | | | Referral | | | quadrant of left | | | | | | breast in female, | | | | | | estrogen receptor | | | | | | positive (HCC) | | + + +--------+ + + documented as of this encounter Visit Diagnoses + + | Diagnosis | + + | Malignant neoplasm of upper-outer quadrant of left breast in female, estrogen receptor | | positive (HCC) | + + documented in this encounter"
--- OUTSIDE RECORDS SUMMARY | ~2019-07-16 | XMS | Encounter Summary ---
Demographics + + + | Address | [address] | | | [place] [address] | + + + | Home Phone | | + + + | Preferred Language | Unknown | + + + | Marital Status | Single | + + + | Yarsani Affiliation | Unknown | + + + | Race | Unknown | + + + | Ethnic Group | Unknown | + + + Author + + + | Author | [facility] | | | and [place] | + + + | Organization | [facility] | | | and [place] | + + + | Address | Unknown | + + + | Phone | Unavailable | + + + Support + + + + + | Name | Relationship | Address | Phone | + + + + + | Orly Patel | ECON | [address] | | | | | [place] | | | | | [address] | | + + + + + Care Team Providers + +------+ + | Care Sales Agent Trading Stamps Name | Role | Phone | + +------+ + | Fely Paris | PCP | | | PA | | | + +------+ + Encounter Details +--------+ + + + + | Date | Type | Department | Care Team | Description | +--------+ + + + + | 01/28/ | Documentati | [facility] | Lluvia Varma | | | 2018 | on | MED CNT ONCOLOGY | A, OT | | | | | THERAPY [address] | | | | | | [place], | | | | | | [place] [address] | | | | | | [phone] | | | +--------+ + + + [...] documented as of this encounter Progress Notes Lluvia Varma OT - 01/28/2018 11[facility]59 [facility] [address] [place] [address] Oncology Rehab Screening Date: 01/28/2018 Patient Information Patient Name: Jessica Patel Date of : 1975 Age: 42 y.o. Patient was seen for oncology rehab screening due to new patient consult. Patient currently being treated for L breast cancer and treatment regimen includes radiation. Introduced dominga pappas to patient and advised her of role and availability of oncology rehab navigator. Patient is s/p L breast lumpectomy and SNB (1/2+) on 10/26/17. She had a complicated post-op course d ue to wound infection with dehiscence. Patient has now healed and is starting her radiatio n. She currently reports no areas of concern or impairment. She has no c/o pain; LUE ROM i s WFL; no edema. Instructed patient on ROM exs and scar massage. She demos good understand ing. Patient knows how to contact oncology rehab should she have any questions or concerns in the future. Patient to contact therapist or doctor if change in status. Electronically signed by: Lluvia Varma OT, 01/29/2018 9:59 Patient Name: Jessica Patel/: 1975/ documented in this encounter Plan of Treatment +--------+ + + + + | Date | Type | Specialty | Care Team | Description | +--------+ + + + + | 06/09/ | Appointment | Radiation Oncology | Yin Alex | | | 2019 | | | MD [address]ay Yu[address] | | | | | | [place] | | | | | | [id number] | | | | | | | | +--------+ + + + + documented as of this encounter Visit Diagnoses Not on filedocumented in this encounter"
--- OUTSIDE RECORDS SUMMARY | ~2019-07-16 | XMS | Encounter Summary ---
Demographics + + + | Address | [address] | | | [place] [address] | + + + | Home Phone | | + + + | Preferred Language | Unknown | + + + | Marital Status | Single | + + + | Scientologist Affiliation | Unknown | + + + | Race | Unknown | + + + | Ethnic Group | Unknown | + + + Author + + + | Author | [facility] | | | and [place] | + + + | Organization | [facility] | | | and [place] [...] [place] | | | | | [address] | | + + + + + Care Team Providers + +------+ + | Care Senior Linux Unix Engineer Name | Role | Phone | + +------+ + | Fely Paris | PCP | | | PA | | | + +------+ + Reason for Visit +--------+ + | Reason | Comments | +--------+ + | Other | Survivorship | +--------+ + Encounter Details +--------+ + + + + | Date | Type | Department | Care Team | Description | +--------+ + + + + | 03/04/ | Telephone | [facility] | Kylee Esme Veronica, | Other (Survivorship) | | 2018 | | MED CTR MEDICAL | RN | | | | | ONCOLOGY CLINIC [address] | | | | | | [address] | | | | | | [place] [address] | | | | | | [phone] | | | +--------+ + + + [...] [place] | | | | | | [address] | | | | | | | | +--------+ + + + + documented as of this encounter Visit Diagnoses Not on filedocumented in this encounter"
--- OUTSIDE RECORDS SUMMARY | ~2019-07-16 | XMS | Encounter Summary ---
Demographics + + + | Address | [address] | | | [place] [address] | + + + | Home Phone | | + + + | Preferred Language | Unknown | + + + | Marital Status | Single | + + + | Amish Affiliation | Unknown | + + + | Race | Unknown | + + + | Ethnic Group | Unknown | + + + Author + + + | Author | [facility] | | | and [place] | + + + | Organization | [facility] | | | and [place] [...] [place] | | | | | [address] | | + + + + + Care Team Providers + +------+ + | Care Physical Security Specialist Name | Role | Phone | + +------+ + | Fely Paris | PCP | | | PA | | | + +------+ + Encounter Details +--------+ + + + + | Date | Type | Department | Care Team | Description | +--------+ + + + + | 01/28/ | Documentati | [facility] | Lluvia Varma | | | 2018 | on | MED CNT ONCOLOGY | A, OT | | | | | THERAPY [address] | | | | | | [place], | | | | | | [place] [address] | | | | | | [phone] | | | +--------+ + + + [...] Varma OT - 01/28/2018 11:59 PM [facility] [address] [place] [address] Oncology Rehab Screening Date: 01/28/2018 Patient Information [...] [place] | | | | | | [address] | | | | | | | | +--------+ + + + + documented as of this encounter Visit Diagnoses Not on filedocumented in this encounter"
--- OUTSIDE RECORDS SUMMARY | ~2019-07-16 | XMS | Encounter Summary ---
Demographics + + + | Address | [address] | | | [place] [address] | + + + | Home Phone | | + + + | Preferred Language | Unknown | + + + | Marital Status | Single | + + + | Worship Affiliation | Unknown | + + + | Race | Unknown | + + + | Ethnic Group | Unknown | + + + Author + + + | Author | [facility] | | | and [place] | + + + | Organization | [facility] | | [...] [place] | | | | | [address] | | + + + + + Care Team Providers + +------+ + | Care Plisse Machine Operator Name | Role | Phone | + [...] | +--------+ + + + + | 01/31/ | Hospital | [facility] | Yin Alex | Malignant neoplasm | | 2018 | Encounter | MED CTR RADIATION | MD Alpa [address] | of upper-outer | | | | ONCOLOGY CLINIC [address] | [place], [place] | quadrant of left | | | | [address] [facility] | [address] | breast in female, | | | | [place] [address] | | estrogen receptor | | | | [phone] | | positive (HCC) | | | [...] + + + | Blood Pressure | 146/88 | 01/31/2018 11:28 AM | | | | | PDT | | + + + + + | Pulse | 75 | 01/31/2018 11:28 AM | | | | | PDT | | + + + + + | Temperature | 36.7 C (98.1 F) | 01/31/2018 11:28 AM | | | | | PDT | | + + + + + | Respiratory Rate | 16 | 01/31/2018 11:28 AM | | | | | PDT | | + + + + + | Oxygen Saturation | 96% | 01/31/2018 11:28 AM | | | | | PDT | | + + + + + | Inhaled Oxygen | - | - | | | Concentration | | | | + + + + + | Weight | 111.2 kg (245 lb 2.4 | 01/31/2018 11:28 AM | | | | oz) | PDT | | + + + + + | Height | - | - | | + + + + + | Body Mass Index | 44.54 | 12/19/2017 12:43 PM | | | [...] as of this encounter Progress Notes Yin Patterson MD - 01/31/2018 11:29 AM PDT Radiation Oncology Weekly On Treatment Note Diagnosis: ICD-10-CM ICD-9-CM 1. Malignant neoplasm of upper-outer quadrant of left breast in female, estrogen receptor p ositive (HCC) C50.412 174.4 Z17.0 V86.0 Reason for visit: On treatment evaluation Radiation technical factors: Dose Delivered Dose Planned Fractions Delivered 2403 cGy 4005cGy 05/04 Images were reviewed this week and results [...] file prior to encounter. Pain assessment: Location: NA Pain Level: PAIN PROG PAIN LEVEL: 0 Wt Readings from Last 3 Encounters: 01/31/18 111.2 kg (245 lb 2.4 oz) 01/24/18 111.2 kg (245 lb 2.4 oz) 01/02/18 111.7 kg (246 lb 4.1 oz) Vitals: 01/31/18 1128 BP: 146/88 Pulse: 75 Resp: 16 Temp: 36.7 C (98.1 F) TempSrc: Temporal SpO2: 96% Weight: 111.2 kg (245 lb 2.4 oz) Physical Exam Constitutional: She appears well-developed and well-nourished. Neurological: She is alert. Skin: No rash noted. No erythema. Psychiatric: She has a normal mood and affect. Physician Assessment: Krupa is in her second week of radiation treatment. She is tolerating this very well. Min imal fatigue. No skin irritation. She has not been using emollient lotion, encouraged her to start and apply 2-3 times a day. Toxicities reviewed in nursing note. Disposition: Continue radiation treatment as planned. Skin care with emollient lotion Yin Ricci MD Radiation Oncologist Kaykay Church RN - 01/31/2018 11:29 AM PDT 01/31/18 1129 General Disorders and Administration Site Conditions Fatigue 1 - Grade 1 Performance Status Karnofsky Performance Score 80% documented in this en counter Plan of Treatment +--------+ + + + + | Date | Type | Specialty | Care Team | Description | +--------+ + + + + | 06/09/ | Appointment | Radiation Oncology | Yin Alex | | | 2019 | | | MD [address] | | | | | | [place], [place] | | | | | | [phone] | | | | | | | | +--------+ + + + + documented as of this encounter Visit Diagnoses + + | Diagnosis | + + | Malignant neoplasm of upper-outer quadrant of left breast in female, 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
--- OUTSIDE RECORDS SUMMARY | ~2019-07-16 | XMS | Encounter Summary ---
Demographics + + + | Address | [address] | | | [place] [address] | + + + | Home Phone | | + + + | Preferred Language | Unknown | + + + | Marital Status | Single | + + + | Catholic Affiliation | Unknown | + + + | Race | Unknown | + + + | Ethnic Group | Unknown | + + + Author + + + | Author | [facility] | | | and Justiceana | + + + | Organization | [facility] | | | and Justiceana | [...] [place] | | | | | [address] | | + + + + + Care Team Providers + +------+ + | Care Hotel Breakfast Attendant Name | Role | Phone | + +------+ + | Fely Paris | PCP | | | PA | | | + +------+ + Reason for Visit + + + | Reason | Comments | + + + | Consult | | + + + | Breast [...] Specialty | Radiation | Diagnoses | | [facility], | | | Services | Oncology | [...] left breast | [place], | [place] [address] | | | | | in female, | [place] [address] | Phone: | | | | | estrogen | Phone: | [phone] | | | | | receptor | [phone] | Fax: | | | | | positive | Fax: | [phone] | | | | | (HCC) | [phone] | | +--------+ + + + + + Encounter Details +--------+ + + + + | Date | Type | Department | Care Team | Description | +--------+ + + + + | 12/19/ | Hospital | [facility] | Yin Alex | Malignant neoplasm | | 2018 | Encounter | MED CTR RAD[facility]ATION | MD Alpa [address] | of upper-outer | | | | ONCOLOGY CLINIC [address] | [place], [place] | quadrant of left | | | | [address] | [address] | breast in female, | | | | [place] [address] | | estrogen receptor | | | | [phone] | | positive (HCC) | +--------+ + [...] + | Blood Pressure | 138/90 | 12/19/2017 12:43 PM | | | | | PDT | | + + + + + | Pulse | 62 | 12/19/2017 12:43 PM | | | | | PDT | | + + + + + | Temperature | 36.8 C (98.3 F) | 12/19/2017 12:43 PM | | | | | PDT | | + + + + + | Respiratory Rate | 16 | 12/19/2017 12:43 PM | | | | | PDT | | + + + + + | Oxygen Saturation | 96% | 12/19/2017 12:43 PM | | | | | PDT | | + + + + + | Inhaled Oxygen | - | - | | | Concentration | | | | + + + + + | Weight | 110.6 kg (243 lb | 12/19/2017 12:43 PM | | | | 13.3 oz) | PDT | | + + + + + | Height | 158 cm (5' 2.21") | 12/19/2017 12:43 PM | | | | | PDT | | + + + + + | Body Mass Index | 44.3 | 12/19/2017 12:43 PM | | | [...] +---------+--------+ + documented as of this encounter Plan of Treatment +--------+ + + + + | Date | Type | Specialty | Care Team | Description | +--------+ + + + + | 06/09/ | Appointment | Radiation Oncology | Yin Alex | | | 2020 | | | MD [address] | | | | | | [place] | | | | | | [address] | | | | | | | | +--------+ + + + + documented as of this encounter Procedures + +--------+ + + + | Procedure Name | Priori | Date/Time | Associated Diagnosis | Comments | | | ty | | | | + +--------+ + + + | LABS - EXTERNAL SCAN | | 12/19/2017 | | Results for this | | | | 12:00 AM | | procedure are in the | | | | PDT | | results section. | + +--------+ + + + | PATHOLOGY - EXTERNAL | | 11/23/2017 | | Results for this | | SCAN | | 12:00 AM | | procedure are in the | | | | PDT | | results section. | + +--------+ + + + | LABS - EXTERNAL SCAN | | 11/23/2017 | | Results for this | | | | 12:00 AM | | procedure are in the | | | | PDT | | results section. | + +--------+ + + + | IMAGING REPORT - | | 10/26/2017 | | Results for this | | EXTERNAL SCAN | | 12:00 AM | | procedure are in the | | | | PST | | results section. | + +--------+ + + + | PATHOLOGY - EXTERNAL | | 10/26/2017 | | Results for this | | SCAN | | 12:00 AM | | procedure are in the | | | | PST | | results section. | + +--------+ + + + | PATHOLOGY - EXTERNAL | | 10/26/2017 | | Results for this | | SCAN | | 12:00 AM | | procedure are in the | | | | PST | | results section. | + +--------+ + + + | IMAGING REPORT - | | 10/05/2017 | | Results for this | | EXTERNAL SCAN | | 12:00 AM | | procedure are in the | | | | PST | | results section. | + +--------+ + + + | PATHOLOGY - EXTERNAL | | 10/05/2017 | | Results for this | | SCAN | | 12:00 AM | | procedure are in the | | | | PST | | results section. | + +--------+ + + + | IMAGING REPORT - | | 10/02/2017 | | Results for this | | EXTERNAL SCAN | | 12:00 AM | | procedure are in the | | | | PST | | results section. | + +--------+ + + + | IMAGING REPORT - | | 02/08/2017 | | Results for this | | EXTERNAL SCAN | | 12:00 AM | | procedure are in the | | | | PDT | | results section. | + +--------+ + + + | IMAGING REPORT - | | 02/09/2016 | | Results for this | | EXTERNAL SCAN | | 12:00 AM | | procedure are in the | | | | PDT | | results section. | + +--------+ + + + documented in this encounter Results LABS - EXTERNAL SCAN (12/19/2017 12:00 AM PDT) + + + | Narrative | Performed At | + + + | Ordered by an | | | unspecified provider. | | + + + LABS - EXTERNAL SCAN (11/23/2017 12:00 AM PDT) + + + | Narrative | Performed At | + + + | Ordered by an | | | unspecified provider. | | + + + PATHOLOGY - EXTERNAL SCAN (11/23/2017 12:00 AM PDT) + + + | Narrative | Performed At | + + + | Ordered by an | | | unspecified provider. | | + + + PATHOLOGY - EXTERNAL SCAN (10/26/2017 12:00 AM PST) + + + | Narrative | Performed At | + + + | Ordered by an | | | unspecified provider. | | + + + PATHOLOGY - EXTERNAL SCAN (10/26/2017 12:00 AM PST) + + + | Narrative | Performed At | + + + | Ordered by an | | | unspecified provider. | | + + + IMAGING REPORT - EXTERNAL SCAN (10/26/2017 12:00 AM PST) + + + | Narrative | Performed At | + + + | Ordered by an | | | unspecified provider. | | + + + PATHOLOGY - EXTERNAL SCAN (10/05/2017 12:00 AM PST) + + + | Narrative | Performed At | + + + | Ordered by an | | | unspecified provider. | | + + + IMAGING REPORT - EXTERNAL SCAN (10/05/2017 12:00 AM PST) + + + | Narrative | Performed At | + + + | Ordered by an | | | unspecified provider. | | + + + IMAGING REPORT - EXTERNAL SCAN (10/02/2017 12:00 AM PST) + + + | Narrative | Performed At | + + + | Ordered by an | | | unspecified provider. | | + + + IMAGING REPORT - EXTERNAL SCAN (02/08/2017 12:00 AM PDT) + + + | Narrative | Performed At | + + + | Ordered by an | | | unspecified provider. | | + + + IMAGING REPORT - EXTERNAL SCAN (02/09/2016 12:00 AM PDT) + + + | Narrative | Performed At | + + + | Ordered by an | | | unspecified provider. 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
--- OUTSIDE RECORDS SUMMARY | ~2019-07-16 | XMS | Encounter Summary ---
Demographics + + + | Address | [address] | | | [place] [address] | + + + | Home Phone | | + + + | Preferred Language | Unknown | + + + | Marital Status | Single | + + + | Congregation Affiliation | Unknown | + + + | Race | Unknown | + + + | Ethnic Group | Unknown | + + + Author + + + | Author | [facility] | | | and Justiceana | + + + | Organization | [facility] | | | and Justiceana | + + + | Address | Unknown | + + + | Phone | Unavailable | + + + Support + + + + + | Name | Relationship | Address | Phone | + + + + + | Olry Patel | ECON | [address] | | | | | [place] | | | | | [address] | | + + + + + Care Team Providers + +------+ + | Care Route Sales Representative Name | Role | Phone | + +------+ + | Fely Paris | PCP | | | PA | | | + +------+ + Reason for Visit + + + | Reason | Comments | + + + | Medication Refill | | + + + Encounter Details +--------+--------+ + + + | Date | Type | Department | Care Team | Description | +--------+--------+ + + + | 06/09/ | Refill | [facility] | Ryan, | Medication Refill | | 2019 | | [facility] | Mihir Parisi MD [address] | | | | | [facility]OGY CLIN[facility] [address] | [address] | | | | | [address] [place] | [place] [address] | | | | | [place] [address] | [phone] | | | | | [phone] | | | +--------+--------+ + + + Social History + +-------+ [...] [address] | | | | | | [address] [place], [place] | | | | | | [address] | | | | | | | | +--------+ + + + + documented as of this encounter Visit Diagnoses Not on filedocumented in this encounter"
--- OUTSIDE RECORDS SUMMARY | ~2019-07-16 | XMS | Encounter Summary ---
Demographics + + + | Address | [address] | | | [place] [address] | + + + | Home Phone | | + + + | Preferred Language | Unknown | + + + | Marital Status | Single | + + + | Sabianist Affiliation | Unknown | + + + | Race | Unknown | + + + | Ethnic Group | Unknown | + + + Author + + + | Author | [facility] | | | and Justiceana | + + + | Organization | [facility] | | | and Justiceana | [...] [place] | | | | | [address] | | + + + + + Care Team Providers + +------+ + | Care Convex Grinder Operator Name | Role | Phone | + +------+ + | Fely Paris | PCP | | | PA | | | + +------+ + Encounter Details +--------+ + + + + | Date | Type | Department | Care Team | Description | +--------+ + + + + | 02/14/ | Hospital | [facility] | Yin Alex | Malignant neoplasm | | 2018 | Encounter | MED CTR MEDICAL | MD Alpa [address] | of upper-outer | | | | ONCOLOGY CLINIC [address] | [place], [place] | quadrant of left | | | | [place] | [address] | breast in female, | | | | [place] [address] | | estrogen receptor | | | | [phone] | | positive (HCC) | | | [...] + + documented as of this encounter Medications at Time of Discharge + + + +---------+--------+ + | Medication | Sig | Dispensed | Refills | Start | End Date | | | | | | Date | | + + + +---------+--------+ + | cholecalciferol | Take 400 Units by | | 0 | | | | (VITAMIN D-3) 400 | mouth Daily. | | | | | | units capsule | | | | | | + + + +---------+--------+ + | ergocalciferol | Take 50,000 Units [...] documented as of this encounter Progress Notes Angela Pichardotanportia Veronica, RN - 02/14/2018 3:29 PM Neeta Patel (Mindy) completes treatment gian , 02/15/18, for left breast cancer and is eligible for a survivorship care plan per Comm ission on Cancer guidelines. We met today per her preference. Survivorship care plan was giv en and discussed with Krupa and her oldest daughter in person today. No further questions at this time per patient. Notified Krupa I would be calling in one month to follow up and disc uss any questions she may have. Let her know if there are any questions before then, she is welcome to call me anytime, contact information provided. Krupa filled out the NCCN distress thermometer and results are as follows: overall distress 2/10. She declined any of the listed areas as problems in the past week including today. Kimmy piedra denies any other concerns or issues I may be of assistance with at this time. Krupa's israel gest daughter is 8 and she mentioned her daughter was having a difficult time emotionally at the beginning of her diagnosis and treatment. I told Krupa about the CLIMB program and offe red to put her in touch with our medical social consultant GERSON Wilson for more information. Krupa decline d at this time saying her daughter has come with her to enough appointments and she is doing better. I made sure Krupa knew how to contact Steve or myself if she should change her mind about wanting more info about this program. We also discussed other support resources availa ble to her and how to contact them should she need. Krupa has already initiated tamoxifen un tuan the care of Dr. Davis in [place]. She tells me she has a follow up with him doug dominguez in March. She denies any side effects experienced since initiation of this medication . She will follow up with Dr. Ricci next on 05/24/18. In addition to the survivorship care plan, the following resources were provided today: inf ormation about local and national support groups, a handout on anti-inflammation diets and a booklet titled Cancer Survivorship: A Guide For Patients And Their Families. 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
--- OUTSIDE RECORDS SUMMARY | ~2019-07-16 | XMS | Encounter Summary ---
Demographics + + + | Address | [address] | | | [place] [address] | + + + | Home Phone | | + + + | Preferred Language | Unknown | + + + | Marital Status | Single | + + + | Bahai Affiliation | Unknown | + + + | Race | Unknown | + + + | Ethnic Group | Unknown | + + + Author + + + | Author | [facility] | | | and Justiceana | + + + | Organization | [facility] | | | and Justiceana | [...] [place] | | | | | [address] | | + + + + + Care Team Providers + +------+ + | Care Surfboard Designer Name | Role | Phone | + +------+ + | Fely Paris | PCP | | | PA | | | + +------+ + Reason for Visit + + + | Reason | Comments | + + + | Follow-up | | + + + Evaluate & Treat (Routine) +--------+--------+ + + + + | Status | Reason | Specialty | Diagnoses / | Referred By | Referred To | | | | | Procedures | Contact | Contact | +--------+--------+ + + + + | Closed | | Radiation | Diagnoses | [facility] | Abi, | | | | Oncology | Malignant | Radiation | Yin Yuen MD | | | | | neoplasm of | Oncology | [address] | | | | | unspecified | Clinic [address] | | | | | site of | [address] [place] | [place], | | | | | unspecified | [place], | [place] [address] | | | | | female | [place] | Phone: | | | | | breast (HCC) | [address] | [phone] | | | | | Left | Phone: | Fax: | | | | | Breast | [phone] | [phone] | | | | | Procedures | Fax: | | | | | | [place] OFFICE | [phone] | | | | | | OUTPATIENT | | | | | | | VISIT 25 | | | | | | | MINUTES | | | +--------+--------+ + + + + Encounter Details +--------+ + + + + | Date | Type | Department | Care Team | Description | +--------+ + + + + | 06/05/ | Hospital | [facility] | Yin Alex | Breast cancer | | 2018 | Encounter | MED CTR RADIATION | MD [address] | screening, high risk | | | | ONCOLOGY CLINIC [address] | [place], [place] | patient (Primary | | | | [address] [place] | [phone] | Dx); Malignant | | | | [place] [address] | | neoplasm of | | | | [phone] | | upper-outer quadrant | | | | | | of left breast in | | | | | | female, estrogen | | | | | | receptor positive | | | | | | (HCC); Infestation | | | | | | by bed bug | +--------+ + + + + Social [...] + + + | Blood Pressure | 150/89 | 06/05/2018 10:25 AM | | | | | PDT | | + + + + + | Pulse | 60 | 06/05/2018 10:25 AM | | | | | PDT | | + + + + + | Temperature | 37.1 C (98.8 F) | 06/05/2018 10:25 AM | | | | | PDT | | + + + + + | Respiratory Rate | 16 | 06/05/2018 10:25 AM | | | | | PDT | | + + + + + | Oxygen Saturation | 97% | 06/05/2018 10:25 AM | | | | | PDT | | + + + + + | Inhaled Oxygen | - | - | | | Concentration | | | | + + + + + | Weight | 104.5 kg (230 lb 6.1 | 06/05/2018 10:25 AM | | | | oz) | PDT | | + + + + + | Height | - | - | | + + + + + | Body Mass Index | 41.86 | 12/19/2017 12:43 PM | | | [...] encounter Progress Notes Yin Alex MD - 06/05/2018 10:35 AM PDT Radiation Oncology Follow-up Chief Complaint/ICD10 ICD-10-CM ICD-9-CM 1. Malignant neoplasm of upper-outer quadrant of left breast in female, estrogen receptor p ositive (HCC) C50.412 174.4 Z17.0 V86.0 History of Present Illness: Krupa is a 43 year old woman with a history of left breast cancer. Mucinous carcinoma pat hologic stage IA, T1c N1mi. She has undergone lumpectomy and sentinel lymph node procedure , tumor size 1.8 cm, grade 1, no LVSI, negative final margin after reexcision for initial po sitive superior anterior margin, 1/2 sentinel lymph nodes involved with micrometastases. Co mpleted adjuvant radiation with high tangents, 40.05 Gy in 15 fractions and a 10 Gy in 5 fr actions lumpectomy boost, 02/15/18 Returns for routine follow-up, 4 months since completing radiation. Notes left breast tend erness and crusting around the nipple. No bloody nipple discharge. She also reports left sh oulder tightness. No arm swelling. No focal areas of bone pain. She has lost some weight o clinton the past few months, no dedicated effort for weight loss. Continues on tamoxifen and is tolerating well. Last seen by Dr. Davis a few weeks ag o. She reports problems with bed-bugs at home and has itchy bites over her arms and legs for t he past few weeks. Review of systems: Constitutional: Weight loss of 8 pounds since last visit in January, reports appetite is good. Denies fatigue. Denies high fevers, shaking chills, anorexia, nausea, vomiting, or night sw eats. Appetite without changes. Ear, Nose, Mouth, Throat: Denies odynophagia, dysphagia, or tinnitus. Cardiovascular: Denies shortness of breath, dyspnea on exertion, chest pain, palpitations o r orthopnea. Respiratory: Reports occasional dry cough, unchanged. Denies hemoptysis, or sputum producti on. Gastrointestinal: Denies abdominal pain, constipation, diarrhea, melena, or bright red bloo d per rectum. Genitourinary: Denies hematuria or dysuria. Musculoskeletal: Reports intermittent tenderness and tightness in left shoulder and axilla muscle, reports limited ROM, states that she has not been doing any exercises consistently. Neurologic: Denies headache, visual changes, or numbness/tingling of the extremities. Endocrine: Denies peripheral edema or heat/cold intolerance. Hematologic: Reports occasional spontaneous bruising. Denies spontaneous bleeding. Integumentary: Denies rash, wounds or other skin concerns. Pain: Denies pain. Note: Here 3 month follow up. My chart: Active Pain assessment: Location: Left shoulder and axilla. Pain Level: PAIN PROG PAIN LEVEL: 5 Pain Quality: Intermittent tenderness and tightness Current pain regimen: NA Current Outpatient Prescriptions Medication Sig Dispense Refill cholecalciferol (VITAMIN D-3) [...] to steri-strips Intolerance No active intolerances/contraindications Vitals: 06/05/18 1025 BP: 150/89 Pulse: 60 Resp: 16 Temp: 37.1 C (98.8 F) Wt Readings from Last 3 Encounters: 06/05/18 104.5 kg (230 lb 6.1 oz) 02/14/18 108.1 kg (238 lb 5.1 oz) 02/07/18 110.4 kg (243 lb 6.2 oz) Physical Exam: General: Healthy appearing overweight unkempt woman in no acute medical distress. KPS: [...] Exam performed in the presence of a teaching aide. On upright exam breasts appear symm etric bilaterally with no malignant appearing skin changes. The left breast demonstrates a well-healed surgical incision. On supine exam palpation of the left breast demonstrates mod erate fibrosis and retraction at the site of prior lumpectomy. No discrete mass lesions are identified in either breast. There is a white crust over the NAC. There is mild pain with palpation. No nipple changes. Derm: numerous red bit prince over her arms. Labs: No recent results. Imaging: No recent results. Assessment: ICD-10-CM ICD-9-CM 1. Malignant neoplasm of upper-outer quadrant of left breast in female, estrogen receptor p ositive (HCC) C50.412 174.4 Z17.0 V86.0 Jessica Ping Patel is an 43 y.o. female with a history of early stage, ER+, Her2- Left dinora st cancer. She was treated with BCS and adjuvant radiation. Continues on Tamoxien. Clinical exam does not demonstrate any evidence of recurrence. She has moderate residual s juany-effects of radiation and surgery with breast fibrosis, tenderness, mild retraction and a xillary tightness. She was encouraged to continue breast massage and stretches. Has previo usly worked with OT. Encouraged her to focus on personal hygiene, as this is the most likely cause for the crust ing on her breast. If blood d/c develops she should contact us. Concern of active bed bug infestation at her home. No bugs seen in clinic. Protocol for i solation and room cleaning followed. Encouraged her to call an event coordinator for proper olga dirk of the bugs. Plan: - Annual mammogram due 09/2018, [facility]. - Follow-up with Dr. Davis in [place] in November 2018, as directed with ongoing tamox ifen. - Follow-up in 1 year for breast exam, sooner if needed. Orders Placed This Encounter Procedures KASSIDY Tomosynthesis Screening Bilateral Thank you for allowing me to participate in the care of Jesisca Patel. If you should nunez ve any questions regarding this evaluation, please do not hesitate to contact me. Yin Alex M.D. Radiation Oncologist Department of Radiation Oncology [facility] Office: [phone] CC: Patient Care Team: AMY Silver as PCP - General (Physician Asst - Certified) Mihir Davis MD as Consulting Physician (Medical Oncology) Hung Reid MD (Specialist/Technologist,Other - Sustainable Products Marketing Manager) Yin Alex MD as Physician (Radiation Oncology) documented in this encounter Plan of Treatment +--------+ + + + + | Date | Type | Specialty | Care Team | Description | +--------+ + + + + | 06/09/ | Appointment | Radiation Oncology | AbiLouiseen | | | 2019 | | | MD [address] | | | | | | [address] [place], [place] | | | | | | [address] | | | | | | | | +--------+ + + + + + +---------+--------+ + + | Name | Type | Priori | Associated Diagnoses | Order Schedule | | | | ty | | | + +---------+--------+ + + | KASSIDY Tomosynthesis | Imaging | Routin | Breast cancer | Expected: | | Screening Bilateral | | e | screening, high risk | 07/01/2018, Expires: | | | | | patient | 08/30/2019 | + +---------+--------+ + + documented as of this encounter Visit Diagnoses + + | Diagnosis | + + | Breast cancer screening, high risk patient - Primary Screening mammogram for | | high-risk patient | + + | Malignant neoplasm of upper-outer quadrant of left breast in female, 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
--- OUTSIDE RECORDS SUMMARY | ~2019-07-16 | XMS | Encounter Summary ---
Demographics + + + | Address | [address] | | | [place] [address] | + + + | Home Phone | | + + + | Preferred Language | Unknown | + + + | Marital Status | Single | + + + | Mormon Affiliation | Unknown | + + + | Race | Unknown | + + + | Ethnic Group | Unknown | + + + Author + + + | Author | [facility] | | | and Justiceana | + + + | Organization | [facility] | [...] [place] | | | | | [address] | | + + + + + Care Team Providers + +------+ + | Care Appliquer Name | Role | Phone | + [...] | | ONCOLOGY CLINIC [address] | [facility] [place] | | | | | [address] | [address] | | | | | [place] [address] | | | | | | [phone] | | | +--------+ + + + [...] | | | | | | [place], [place] | | | | | | [address] | | | | | | | | +--------+ + + + + documented as of this encounter Visit Diagnoses + + | Diagnosis | + + | Malignant neoplasm of upper-outer quadrant of left breast in female, 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
--- OUTSIDE RECORDS SUMMARY | ~2019-07-16 | XMS | Encounter Summary ---
Demographics + + + | Address | [address] | | | [place] [address] | + + + | Home Phone | | + + + | Preferred Language | Unknown | + + + | Marital Status | Single | + + + | Jewish Affiliation | Unknown | + + + | Race | Unknown | + + + | Ethnic Group | Unknown | + + + Author + + + | Author | [facility] | | | and Justiceana | + + + | Organization | [facility] | | | and Justiceana [...] [place], [place] | | | | | [address] | | + + + + + Care Team Providers + +------+ + | Care Loan Clerk Name | Role | Phone | + [...] Isaac BREONNA | | | | | [phone] | [place] [address] | | +--------+ + + + + [...] | | | MD Alpa [address] | | | | | | [place] | | | | | | [address] | | | | | | | | +--------+ + + + + documented as of this encounter Procedures + +--------+ + + + | Procedure Name | Priori | Date/Time | Associated Diagnosis | Comments | | | ty | | | | + +--------+ + + + | US GUIDED BREAST | Routin | 10/05/2017 | | Results for this | | BIOPSY LEFT | e | 1:05 PM | | procedure are in the | | | | PST | | results section. | + +--------+ + + + documented in this encounter Results US Guided Breast Biopsy Left (10/05/2017 1:05 PM PST) + + | Specimen | [...]
--- OUTSIDE RECORDS SUMMARY | ~2019-07-16 | XMS | Encounter Summary ---
Demographics + + + | Address | [address] | | | [place] [address] | + + + | Home Phone [...] Author + + + | Author | [facility] | | | and Justiceana | + + + | Organization | [facility] | | | and [...] [place] | | | | | [address] | | + + + + + Care Team Providers + +------+ + | Care Editorial Project Manager Name | Role | Phone | + +------+ + | Fely Paris | PCP | | | PA | | | + +------+ + Encounter Details +--------+ + + + + | Date | Type | Department | Care Team | Description | +--------+ + + + + | 12/23/ | Hospital | [facility] | Yin Alex | | | 2018 | Encounter | MED CTR RADIATION | [place], [address] | | | | | [address]COLOGY [address] [place], [place] | | | | | [place], | [address] | | | | | [place] [address] | | | | | | [phone] | | | +--------+ + + + [...] | | | | | | [address] [place] | | | | | | [address] | | | | | | | | +--------+ + + + + documented as of this encounter Visit Diagnoses Not on filedocumented in this encounter"
--- OUTSIDE RECORDS SUMMARY | ~2019-07-16 | XMS | Encounter Summary ---
Demographics + + + | Address | [address] | | | [place] [address] | + + + | Home Phone | | + + + | Preferred Language | Unknown | + + + | Marital Status | Single | + + + | Mormonism Affiliation | Unknown | + + + | Race | Unknown | + + + | Ethnic Group | Unknown | + + + Author + + + | Author | [facility] | | | and Justiceana | + + + | Organization | [facility] | | | and Justiceana [...] [place] | | | | | [address] | | + + + + + Care Team Providers + +------+ + | Care Mechanic Assistant Name | Role | Phone | + +------+ + | Fely Paris | PCP | | | PA | | | + +------+ + Reason for Visit + + + | Reason | Comments | + + + | Under Treatment | | + + + Encounter Details +--------+ + + + + | Date | Type | Department | Care Team | Description | +--------+ + + + + | 01/24/ | Hospital | [facility] | Alfredo Bass DO | Malignant neoplasm | | 2018 | Encounter | MED CTR RADIATION | [address] | of upper-outer | | | | ONCOLOGY CLINIC [address] | [place], [place] | quadrant of left | | | | [address] | [address] | breast in female, | | | | [place] [address] | | estrogen receptor | | | | [phone] | | positive (HCC) | | | [...] + + + | Blood Pressure | 118/78 | 01/24/2018 12:07 PM | | | | | PDT | | + + + + + | Pulse | 70 | 01/24/2018 12:07 PM | | | | | PDT | | + + + + + | Temperature | 36.9 C (98.4 F) | 01/24/2018 12:07 PM | | | | | PDT | | + + + + + | Respiratory Rate | 16 | 01/24/2018 12:07 PM | | | | | PDT | | + + + + + | Oxygen Saturation | 97% | 01/24/2018 12:07 PM | | | | | PDT | | + + + + + | Inhaled Oxygen | - | - | | | Concentration | | | | + + + + + | Weight | 111.2 kg (245 lb 2.4 | 01/24/2018 12:07 PM | | | | oz) | [...] documented as of this encounter Progress Notes Alfredo Bass DO - 01/24/2018 12:09 PM PDT Radiation Oncology Weekly On Treatment Note Diagnosis: ICD-10-CM ICD-9-CM 1. Malignant neoplasm of upper-outer quadrant of left breast in female, estrogen receptor p ositive (HCC) C50.412 174.4 Z17.0 V86.0 Reason for visit: On treatment evaluation Radiation technical factors: Dose Delivered Dose Planned Fractions Delivered 1068 cGy 4005 cGy 12/02 Images were reviewed this week and results [...] 0 Wt Readings from Last 3 Encounters: 01/24/18 111.2 kg (245 lb 2.4 oz) 01/02/18 111.7 kg (246 lb 4.1 oz) 12/19/17 110.6 kg (243 lb 13.3 oz) Vitals: 01/24/18 1207 BP: 118/78 Pulse: 70 Resp: 16 Temp: 36.9 C (98.4 F) TempSrc: Temporal SpO2: 97% Weight: 111.2 kg (245 lb 2.4 oz) Physical Exam Constitutional: She is oriented to person, place, and time. Vital signs are normal. She virgen ears well-developed and well-nourished. HENT: Head: Normocephalic and atraumatic. Mouth/Throat: Mucous membranes are normal. Eyes: Conjunctivae and EOM are normal. No scleral icterus. Neck: Trachea normal. Neck supple. Cardiovascular: Normal rate, regular rhythm and intact distal pulses. Pulmonary/Chest: Effort normal and breath sounds normal. Musculoskeletal: Normal range of motion. Lymphadenopathy: She has no cervical adenopathy. Neurological: She is alert and oriented to person, place, and time. She has normal strength . No cranial nerve deficit. Skin: Skin is warm, dry and intact. Psychiatric: She has a normal mood and affect. Her speech is normal and behavior is normal. Judgment and thought content normal. Cognition and memory are normal. Physician Assessment: New start this week. Tolerating treatment well. Skin care reviewed. Toxicities reviewed. She will continue treatment as planned. Toxicities reviewed in nursing note. Disposition: Continue radiation treatment as planned. Alfredo Bass DO Radiation Oncologist Kaykay Church RN - 0 01/24/2018 12:09 PM PDT 01/24/18 1209 General Disorders and Administration Site Conditions Fatigue 0 - Grade 0 Respiratory Thoracic and Mediastinal Cough 0 - Grade 0 Performance Status Karnofsky Performance Score 100% Met with patient today for nurse education. Verbal and written education given to patient r egarding general radiation therapy side effects as well as site specific side effects. Revi ewed process of for their doctor, all questions at this time were answered. documented in this en counter Plan of Treatment +--------+ + + + + | Date | Type | Specialty | Care Team | Description | +--------+ + + + + | 06/09/ | Appointment | Radiation Oncology | Yin Alex | | | 2019 | | | MD Al[address] | | | | | | [place], [place] | | | | | | [address] | | | | | | | | +--------+ + + + + documented as of this encounter Visit Diagnoses + + | Diagnosis | + + | Malignant neoplasm of upper-outer quadrant of left breast in female, 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
--- OUTSIDE RECORDS SUMMARY | ~2019-07-16 | XMS | Encounter Summary ---
Demographics + + + | Address | [address] | | | [place] [address] | + + + | Home Phone | | + + + | Preferred Language | Unknown | + + + | Marital Status | Single | + + + | Mosque Affiliation | Unknown | + + + | Race | Unknown | + + + | Ethnic Group | Unknown | + + + Author + + + | Author | [facility] | | | and Justiceana | + + + | Organization | [facility] | | | and [...] [place] | | | | | [address] | | + + + + + Care Team Providers + +------+ + | Care Prime Broker Name | Role | Phone | + [...] left breast | [place], | [place] [address] | | | | | in female, | [place] [address] | Phone: | | | | | estrogen | Phone: | [phone] | | | | | receptor | [phone] | Fax: | | | | | positive | Fax: | [phone] | | | | | (HCC) | [phone] | | +--------+ + + + + + Encounter Details +--------+ + + + + | Date | Type | Department | Care Team | Description | +--------+ + + + + | 12/19/ | Hospital | [facility] | Yin Alex | Malignant neoplasm | | 2018 | Encounter | MED CTR RADIATION | MD Alpa [address] | of upper-outer | | | | ONCOLOGY CLINIC [address] | [place], [place] | quadrant of left | | | | [address] | [address] | breast in female, | | | | [place] [address] | | estrogen receptor | | | | [phone] | | positive (HCC) | +--------+ + [...] | | 2020 | | | MD Vinay [address] | | | | | | [place] | | | | | | [address] | | | | | | | [...]
--- OUTSIDE RECORDS SUMMARY | ~2019-07-16 | XMS | Encounter Summary ---
Demographics + + + | Address | [address] | | | [place] [address] | + + + | Home Phone | | + + + | Preferred Language | Unknown | + + + | Marital Status | Single | + + + | Quaker Affiliation | Unknown | + + + | Race | Unknown | + + + | Ethnic Group | Unknown | + + + Author + + + | Author | [facility] | | | and Justiceana | + + + | Organization | [facility] | | | [...] [place], [place] | | | | | [address] | | + + + + + Care Team Providers + +------+ + | Care Office Automation Clerk Name | Role | Phone | [...] Isaac BREONNA | | | | | [phone] | [place] [address] | | +--------+ + + + + [...] [place] | | | | | | [address] | | | | | | | | +--------+ + + + + documented as of this encounter Procedures + +--------+ + + + | Procedure Name | Priori | Date/Time | Associated Diagnosis | Comments | | | ty | | | | + +--------+ + + + | NM SENTINEL NODE | Routin | 10/26/2017 | | Results for this | | INJECTION WO IMAGES | e | 11:45 AM | | procedure are in the | | | | PST | | results section. | + +--------+ + + + documented in this encounter Results NM Loa Node Injection wo Images (10/26/2017 11:45 AM PST) + + | Specimen | + [...]
--- OUTSIDE RECORDS SUMMARY | ~2019-07-16 | XMS | Encounter Summary ---
Demographics + + + | Address | [address] | | | [place] [address] | + + + | Home Phone | | + + + | Preferred Language | Unknown | + + + | Marital Status | Single | + + + | Yazidi Affiliation | Unknown | + + + | Race | Unknown | + + + | Ethnic Group | Unknown | + + + Author + + + | Author | [facility] | | | and Justiceana | + + + | Organization | [facility] | | | and [...] [place], [place] | | | | | [address] | | + + + + + Care Team Providers + +------+ + | Care Enforcement Officer Name | Role | Phone | + +------+ + | Fely Paris | PCP | | | [place] | | | + +------+ + Reason for Referral Diagnostic/Screening (Routine) +--------+--------+ + + + + | Status | Reason | Specialty | Diagnoses / | Referred By | Referred To | | | | | Procedures | Contact | Contact | +--------+--------+ + + + + | Closed | | Radiology | Diagnoses | Abi | [facility] [address] | | | | | Malignant | Yin M, | [address] | | | | | neoplasm of | MD [address] | [place], | | | | | left breast | [address] | [place] [address] | | | | | in female, | [place], | Phone: | | | | | estrogen | [place] [address] | [phone] | | | | | receptor | Phone: | Fax: | | | | | positive, | [phone] | [phone] | | | | | unspecified | Fax: | | | | | | site of | [phone] | | | | | | breast (HCC) | | | | | | | Procedures | | | | | | | CT | | | | | | | Treatment | | | | | | | Plan Complex | | | +--------+--------+ + + + + Reason for Visit Auth/Cert +--------+--------+ + + + + | Status | Reason | Specialty | Diagnoses / | Referred By | Referred To | | | | | Procedures | Contact | Contact | +--------+--------+ + + + + | | | | | | | +--------+--------+ + + + + Encounter Details +--------+ + + + + | Date | Type | Department | Care Team | Description | +--------+ + + + + | 01/09/ | Hospital | [facility] | Yin Alex | Malignant neoplasm | | 2018 | Encounter | MED CTR [address] | MD Alpa [address] | of left breast in | | | | [place], | [place], [place] | female, estrogen | | | | [place] [address] | [phone] | receptor positive, | | | | [phone] | | unspecified site of | | | | | | breast (HCC) | +--------+ + + + + [...] | | | | | | [place], [place] | | | | | | [address] | | | | | | | | +--------+ + + + + documented as of this encounter Procedures + +--------+ + + + | Procedure Name | Priori | Date/Time | Associated Diagnosis | Comments | | | ty | | | | + +--------+ + + + | CT TREATMENT PLAN | Routin | 01/09/2018 | Malignant neoplasm | Results for this | | COMPLEX | e | 1:34 PM | of left breast in | procedure are in the | | | | PDT | female, estrogen | results section. | | | | | receptor positive, | | | | | | unspecified site of | | | | | | breast (HCC) | | + +--------+ + + + documented in this encounter Results CT Treatment Plan Complex (01/09/2018 1:34 PM PDT) + + | Specimen | + + | | + + + + + | Narrative | Performed At | + + + | This exam has been auto-finalized and the interpretation may exist | [facility] | | elsewhere in the chart. | | + + + + +---------+ + + | Performing | Address | City/State/Zipcode | Phone Number | | Organization | | | | + +---------+ + + | [facility] | | | | + +---------+ + + documented in this encounter Visit Diagnoses + + | Diagnosis | + + | Malignant neoplasm of left breast in female, estrogen receptor positive, unspecified | | site of breast (HCC) | + + documented in this encounter"
--- OUTSIDE RECORDS SUMMARY | ~2019-07-16 | XMS | Encounter Summary ---
Demographics + + + | Address | [address] | | | [place] [address] | + + + | Home Phone | | + + + | Preferred Language | Unknown | + + + | Marital Status | Single | + + + | Tenriism Affiliation | Unknown | + + + | Race | Unknown | + + + | Ethnic Group | Unknown | + + + Author + + + | Author | [facility] | | | and Justiceana | + + + | Organization | [facility] | | | and Justiceana | [...] [place], [place] | | | | | [address] | | + + + + + Care Team Providers + +------+ + | Care Distribution Warehouse Manager Name | Role | Phone | [...] Isaac BREONNA | | | | | [phone] | [place] [address] | | +--------+ + + + + [...] [place] | | | | | | [address] | | | | | | | | +--------+ + + + + documented as of this encounter Procedures + +--------+ + + + | Procedure Name | Priori | Date/Time | Associated Diagnosis | Comments | | | ty | | | | + +--------+ + + + | KASSIDY TOMOSYN | Routin | 10/02/2017 | | Results for this | | DIAGNOSTIC BILATERAL | e | 2:45 PM | | procedure are in the | | | | PST | | results section. | + +--------+ + + + documented in this encounter Results KASSIDY Tomosynthesis Diagnostic Bilateral (10/02/2017 2:45 PM PST) + + | Specimen | [...]
--- OUTSIDE RECORDS SUMMARY | ~2019-07-16 | XMS | Encounter Summary ---
Demographics + + + | Address | [address] | | | [place] [address] | + + + | Home Phone | | + + + | Preferred Language | Unknown | + + + | Marital Status | Single | + + + | Worship Affiliation | Unknown | + + + | Race | Unknown | + + + | Ethnic Group | Unknown | + + + Author + + + | Author | [facility] | | | and Justiceana | + + + | Organization | [facility] | | | and Justiceana | + + + | Address | Unknown | + + + | Phone | Unavailable | + + + Support + + + + + | Name | Relationship | Address | Phone | + + + + + | Orly aPtel | ECON | [address] | | | | | [place] | | | | | [address] | | + + + + + Care Team Providers + +------+ + | Care Airframe Design Engineer Name | Role | Phone | [...] + + | 01/24/ | Hospital | [facility] | Alfredo Bass DO | Malignant neoplasm | | 2018 | Encounter | MED CTR RADIATION | [address] | of upper-outer | | | | ONCOLOGY CLINIC [address] | [place], [place] | quadrant of left | | | | [address] | [address] | breast in female, | | | | [place] [address] | | estrogen receptor | | | | [phone] | | positive (HCC) | | | [...] [address] | | | | | | [place], [place] | | | | | | [address] | | | | | | | | +--------+ + + + + documented as of this encounter Visit Diagnoses + + | Diagnosis | + + | Malignant neoplasm of upper-outer quadrant of left breast in female, 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
--- OUTSIDE RECORDS SUMMARY | ~2019-07-16 | XMS | Encounter Summary ---
Demographics + + + | Address | [address] | | | [place] [address] | + + + | Home Phone | | + + + | Preferred Language | Unknown | + + + | Marital Status | Single | + + + | Gnosticism Affiliation | Unknown | + + + | Race | Unknown | + + + | Ethnic Group | Unknown | + + + Author + + + | Author | [facility] | | | and Justiceana | + + + | Organization | [facility] | | | and Justiceana [...] [place], [place] | | | | | [address] | | + + + + + Care Team Providers + +------+ + | Care Inspector Floor Sub Assembly Name | Role | Phone | + [...] Closed | | Radiology | Diagnoses | [place], | [address] | | | | | Malignant | Yin M, | [address] | | | | | neoplasm of | MD [address] | [place], | | | | | left breast | [address] | [place] [address] | | | | | in female, | [place], | Phone: | | | | | estrogen | [place] [address] | [phone] | | | | | receptor | Phone: | Fax: | | | | | positive, | [phone] | [phone] | | | | | unspecified | Fax: | | | | | | site of | [phone] | | | | | | breast [...] + + + + | 01/09/ | Orders Only | [facility] | Yin Alex | Malignant neoplasm | | 2018 | | MED CTR RADIATION | MD Alpa [address] | of left breast in | | | | ONCOLOGY CLINIC [address] | [place], [place] | female, estrogen | | | | [address] [place] | [address] | receptor positive, | | | | [place] [address] | | unspecified site of | | | | [phone] | | breast (HCC) | | | [...] [address] | | | | | | [place], [place] | | | | | | [address] | | | | | | | | +--------+ + + + + documented as of this encounter Results CT Treatment Plan Complex [...] unspecified | | site of breast (HCC) - Primary | + + documented in this encounter"
--- OUTSIDE RECORDS SUMMARY | ~2019-07-16 | XMS | Encounter Summary ---
Demographics + + + | Address | [address] | | | [place] [address] | + + + | Home Phone | | + + + | Preferred Language | Unknown | + + + | Marital Status | Single | + + + | Synagogue Affiliation | Unknown | + + + | Race | Unknown | + + + | Ethnic Group | Unknown | + + + Author + + + | Author | [facility] | | | and Justiceana | + + + | Organization | [facility] | | | and Justiceana [...] [place] | | | | | [address] | | + + + + + Care Team Providers + +------+ + | Care Helicopter Specialist Name | Role | Phone | + +------+ + | Fely Paris | PCP | | | [place] | | | + +------+ + Reason for Visit +--------+ + | Reason | Comments | +--------+ + | Other | | +--------+ + Encounter Details +--------+ + + + + | Date | Type | Department | Care Team | Description | +--------+ + + + + | 06/09/ | Telephone | [facility] | Yin Alex | Other | | 2019 | | MED CTR RADIATION | MD Alpa [address] | | | | | ONCOLOGY CLINIC [address] | [place], [place] | | | | | [address] [place] | [address] | | | | | [place] [address] | | | | | | [phone] | | | +--------+ + + + [...] [address] | | | | | | [place] | | | | | | [address] | | | | | | | | +--------+ + + + + documented as of this encounter Visit Diagnoses Not on filedocumented in this encounter"
--- OUTSIDE RECORDS SUMMARY | ~2019-07-16 | XMS | Encounter Summary ---
Demographics + + + | Address | [address] | | | [place] [address] | + + + | Home Phone [...] Author | [facility] | | | and Justiceana | + + + | Organization | [facility] | | | and [...] [place] | | | | | [address] | | + + + + + Care Team Providers + +------+ + | Care Heating Equipment Repairer Name | Role | Phone | + [...] | | | | | | [place] [address] | | | | | | [phone] | | | +--------+ + + + [...] [place] | | | | | | [address] | | | | | | | | +--------+ + + + + documented as of this encounter Visit Diagnoses Not on filedocumented in this encounter"
--- OUTSIDE RECORDS SUMMARY | ~2019-07-16 | XMS | Encounter Summary ---
Demographics + + + | Address | [address] | | | [place] [address] | + + + | Home Phone [...] Author | [facility] | | | and Justiceana | + + + | Organization | [facility] | | | and Justiceana [...] [place] | | | | | [address] | | + + + + + Care Team Providers + +------+ + | Care Psychiatric Np Name | Role | Phone | + [...] [place] | | | | | [address] [place] | [place] [address] | | | | | [place] [address] | [phone] | | | | | [phone] | | | +--------+--------+ + + + [...] | | | | | [place], [place] | | | | | | [address] | | | | | | | | +--------+ + + + + documented as of this encounter Visit Diagnoses + + | Diagnosis | + + | Malignant neoplasm of upper-outer quadrant of left breast in female, 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
--- OUTSIDE RECORDS SUMMARY | ~2019-07-16 | XMS | Encounter Summary ---
Demographics + + + | Address | [address] | | | [place] [address] | + + + | Home Phone | | + + + | Preferred Language | Unknown | + + + | Marital Status | Single | + + + | Moravian Affiliation | Unknown | + + + | Race | Unknown | + + + | Ethnic Group | Unknown | + + + Author + + + | Author | [facility] | | | and Justiceana | + + + | Organization | [facility] [...] [place], [place] | | | | | [address] | | + + + + + Care Team Providers + +------+ + | Care Lead Material Handler Name | Role | Phone | + [...] left breast | [place], | [place] [address] | | | | | in female, | [address] | Phone: | | | | | estrogen | Phone: | [phone] | | | | | receptor | [phone] | Fax: | | | | | positive | Fax: | [phone] | | | | | ([facility]) | [phone] | | +--------+ + + + + [...] quadrant of left | | | | [place], | [place] [address] | breast in female, | | | | [place] [address] | [phone] | estrogen receptor | | | | [phone] | | positive (HCC) | +--------+ + [...] | | | | | | [place], [place] | | | | | | [address] | | | | | | | [...]
--- OUTSIDE RECORDS SUMMARY | ~2019-07-16 | XMS | Encounter Summary ---
Demographics + + + | Address | [address] | | | [place] [address] | + + + | Home Phone | | + + + | Preferred Language | Unknown | + + + | Marital Status | Single | + + + | Baptism Affiliation | Unknown | + + + | Race | Unknown | + + + | Ethnic Group | Unknown | + + + Author + + + | Author | [facility] | | | and Justiceana | + + + | Organization | [facility] | | | and [...] [place] | | | | | [address] | | + + + + + Care Team Providers + +------+ + | Care Cpht Name | Role | Phone | + +------+ + | Fely Paris | PCP | | | PA | | | + +------+ + Reason for Visit + + + | Reason | Comments | + + + | IDT Note | | + + + Encounter Details +--------+ + + + + | Date | Type | Department | Care Team | Description | +--------+ + + + + | 01/16/ | Telephone | [facility] | Mane, | IDT Note | | 2017 | | [facility] | [facility] | | | | | [facility]IN[facility] [address] | | | | | | [address] | | | | | | [place] [address] | | | | | | [phone] | | | +--------+ + + + [...] [place] | | | | | | [id number] | | | | | | | | +--------+ + + + + documented as of this encounter Visit Diagnoses Not on filedocumented in this encounter"
--- OUTSIDE RECORDS SUMMARY | ~2019-07-16 | XMS | Encounter Summary ---
Demographics + + + | Address | [address] | | | [place] [address] | + + + | Home Phone [...] | Author | [facility] | | | and Justiceana | + + + | Organization | [facility] | | | and Justiceana [...] [place] | | | | | [address] | | + + + + + Care Team Providers + +------+ + | Care Agricultural Produce Packer Name | Role | Phone | + [...] | left breast | [place], | [place] [address] | | | | | in female, | [place] [address] | Phone: | | | | | estrogen | Phone: | [phone] | | | | | receptor | [phone] | Fax: | | | | | positive | Fax: | [phone] | | | | | (HCC) | [phone] | | +--------+ + + + + + Encounter Details +--------+ + + + + | Date | Type | Department | Care Team | Description | +--------+ + + + + | 01/02/ | Hospital | [facility] | Yin Alex | Malignant neoplasm | | 2018 | Encounter | [facility] | MD Alpa [address] | of upper-outer | | | | ONCOLOGY CLINIC [address] | [place], [place] | quadrant of left | | | | [address] | [address] | breast in female, | | | | [place] [address] | | estrogen receptor | | | | [phone] | | positive (HCC) | | | [...] encounter Progress Notes Yin Patterson MD - 01/02/2018 11:14 AM PDT Radiation [...] Exam performed in the presence of a diamond setter. On upright exam breasts appear symm etric [...] Radiation Oncologist Department of Radiation Oncology 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
--- OUTSIDE RECORDS SUMMARY | ~2019-07-16 | XMS | Encounter Summary ---
Demographics + + + | Address | [address] | | | [place] [address] | + + + | Home Phone | | + + + | Preferred Language | Unknown | + + + | Marital Status | Single | + + + | Mandaen Affiliation | Unknown | + + + | Race | Unknown | + + + | Ethnic Group | Unknown | + + + Author + + + | Author | [facility] | | | and Justiceana | + + + | Organization | [facility] | | | and Justiceana [...] [place] | | | | | [address] | | + + + + + Care Team Providers + +------+ + | Care Rescue Worker Name | Role | Phone | + [...] | | | | | [place] [address] | | | | | | [phone] | | | +--------+ + + + [...] [place] | | | | | | [id number] | | | | | | | | +--------+ + + + + documented as of this encounter Visit Diagnoses Not on filedocumented in this encounter"
--- OUTSIDE RECORDS SUMMARY | ~2019-07-16 | XMS | Clinical Summary ---
Demographics + + + | Address | [address] | | | [place] [address] | + + + | Home Phone | | + + + | Preferred Language | Unknown | + + + | Marital Status | Single | + + + | Hindu Affiliation | Unknown | + + + | Race | Unknown | + + + | Ethnic Group | Unknown | + + + Author + + + | Author | [facility] | | | and Justiceana | + + + | Organization | [facility] | | | and Justiceana | + + + | Address | Unknown | + + + | Phone | Unavailable | + + + Support + + + + + | Name | Relationship | Address | Phone | + + + + + | Orly Patel | ECON | [address] | | | | | [place], [place] | | | | | [address] | | + + + + + Care Team Providers + +------+ + | Care Betting Clerk Name | Role | Phone | + +------+ + | Fely Paris | PCP | | | PA | | | + +------+ + Allergies + + + + + + | Active Allergy | Reactions | Severity | Noted | Comments | | | | | Date | | + + + + + + | Adhesive & Tape | Rash | Low | 12/20/19 | Patient had | | | | | 18 | reaction to | | | | | | steri-strips | + + + + + + | Hydrocodone | Nausea Only | | 12/20/19 | | | | | | 18 | | + + + + + + Medications + + + +---------+------+------+-------+ | Medication | Sig | Dispensed | Refills | Star | End | Statu | | | | | | t | Date | s | | | | | | Date | | | + + + +---------+------+------+-------+ | naproxen | Take 500 mg by mouth | | 0 | | | Activ | | (NAPROSYN) 500 mg | 2 times daily (with | | | | | e | | tablet | breakfast & | | | | | | | | dinner). | | | | | | + + + +---------+------+------+-------+ | Multiple | Take 1 tablet by | | 0 | | | Activ | | Vitamins-Minerals | mouth Daily. | | | | | e | | (MULTIVITAMIN ADULT | | | | | | | | PO) | | | | | | | + + + +---------+------+------+-------+ | cholecalciferol | Take 400 Units by | | 0 | | | Activ | | (VITAMIN D-3) 400 | mouth Daily. | | | | | e | | units capsule | | | | | | | + + + +---------+------+------+-------+ | ergocalciferol | Take 50,000 Units by | | 0 | | | Activ | | (VITAMIN D-2) 50,000 | mouth Once a week. | | | | | e | | units capsule | | | | | | | + + + +---------+------+------+-------+ | tamoxifen | Take 1 tablet by | 30 | 3 | 10/2 | | Activ | | (NOLVADEX) 20 MG | mouth Daily. 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, estrogen receptor positive | | + + + Encounters +--------+ + + + + | Date | Type | Specialty | Care Team | Description | +--------+ + + + + | 06/09/ | Hospital | Radiation Oncology | Yin Alex | Malignant neoplasm | | 2019 | Encounter | | MD Alpa | of upper-outer | | | | | | quadrant [...] patient | +--------+ + + + + | 06/09/ | Telephone | Radiation Oncology | Yin Alex | Other | | 2019 | | | MD Alpa | | +--------+ + + + + | 06/09/ | Refill | Oncology | Ryan, | Medication Refill | | 2019 | | | Mihir Parisi MD | | +--------+ + + + + | 06/09/ | Refill | Oncology | Ryan, | Medication Refill | | 2019 | | | Mihir Parisi MD | | +--------+ + + + + from Last 3 Months Family History + + +------+ + | Medical History | Relation | Name | Comments | + + +------+ + | Heart failure | Father | | | + + +------+ + | Cancer | Maternal | | | | | Grandmoth | | | | | er | | | + + +------+ + | Heart attack | Paternal | | | | | Grandfath | | | | | er | | | + + +------+ + | Lung cancer | Paternal | | | | | Grandmoth | | | | | er | | | + + +------+ + + +------+ + + | Relation | Name | Status | Comments | + +------+ + + | Father | | | | + +------+ + + | Maternal Grandmother | | | | + +------+ + + | Mother | | Alive | | + +------+ + + | Paternal Grandfather | | | | + +------+ + + | Paternal Grandmother | | | | + +------+ + + Social History + +-------+ +--------+------+ [...] recent travel history available. | + + Last Filed Vital Signs + + + [...] | | + + + + + Plan of Treatment +--------+ + + + + | Date | Type | Specialty | Care Team | Description | +--------+ + + + + | 06/09/ | Appointment | Radiation Oncology | Yin Alex | | | 2019 | | | MD Alpa [address] | | | | | | [place] | | | | | | [address] | | | | | | | | +--------+ + + + + + + + + + | Health Maintenance | Due Date | Last Done | Comments | + + + + + | Vaccine: | | | | | Pneumococcal 19-64 | 1 | | | | (1 of 3 - PCV13) | | | | + + + + + | Vaccine: | | | | | Dtap/Tdap/Td (1 - | 4 | | | | Tdap) | | | | + + + + + | Cervical Cancer | | | | | Screening (Pap) | 5 | | | + + + + + | Vaccine: Influenza | | | | | (#1) | 9 | | | + + + + + Results Not on filefrom Last 3 Months Insurance +-------+--------+ +--------+ + +------+ | Payer | Benefi | Subscriber | Effect | Phone | Address | Type | | | t Plan | ID | eugene | | | | | | / | | Dates | | | | | | Group | | | | | | +-------+--------+ +--------+ + +------+ | MODA | MODA | [id number] | | [phone] | [address] | PPO | | | [address] | | [phone] | | | | [place] | | esent | | [place], | | | | [place] | | | | [place] [address] | | +-------+--------+ +--------+ + +------+ + +--------+ +--------+ + + | Guarantor Name | Accoun | Relation to | Date | Phone | Billing Address | | | t Type | Patient | of | | | | | | | | | | + +--------+ +--------+ + + | Jessica Patel | Person | Self | [birth year] | [address] | | | [place] | | 1975 | [phone] | [place] | | | [place] | | | 0 (Home) | [address] | + +--------+ +--------+ + + Advance Directives + + + + + | Type | Date Recorded | Patient | Explanation | | | | Blow Molding Machine Tender | | + + + + + | Power of | | | | | Audio Tape Librarian | | | | + + + + + | Advance | | | | | Directive | | | | + + + + +
--- OUTSIDE RECORDS SUMMARY | ~2019-07-16 | XMS | Encounter Summary ---
Demographics + + + | Address | [address] | | | [place] [address] | + + + | Home Phone | | + + + | Preferred Language | Unknown | + + + | Marital Status | Single | + + + | Caodaism Affiliation | Unknown | + + + | Race | Unknown | + + + | Ethnic Group | Unknown | + + + Author + + + | Author | [facility] | | | and Justiceana | + + + | Organization | [facility] | | | [...] [place] | | | | | [address] | | + + + + + Care Team Providers + +------+ + | Care Consulting Technical Director Name | Role | Phone | [...] | +--------+ + + + + | 01/29/ | Telephone | [facility] | Yin Alex | Other | | 2018 | | [facility] | MD Alpa [address] | | | | | ONCOLOGY CLINIC [address] | [place], [place] | | | | | [address] | [address] | | | | | [place] [address] | | | | | | [phone] | | | +--------+ + + + [...] [place] | | | | | | [place] | | | | | | [address] | | | | | | | | +--------+ + + + + documented as of this encounter Visit Diagnoses Not on filedocumented in this encounter"
--- OUTSIDE RECORDS SUMMARY | ~2019-07-16 | XMS | Encounter Summary ---
Demographics + + + | Address | [address] | | | [place] [address] | + + + | Home Phone | | + + + | Preferred Language | Unknown | + + + | Marital Status | Single | + + + | Yarsanism Affiliation | Unknown | + + + | Race | Unknown | + + + | Ethnic Group | Unknown | + + + Author + + + | Author | [facility] | | | and Justiceana | + + + | Organization | [facility] | | | and [...] [place] | | | | | [address] | | + + + + + Care Team Providers + +------+ + | Care Swiss Type Screw Machine Operator Name | Role | Phone [...] | +--------+ + + + + | 04/01/ | Telephone | [facility] | Yin Alex | Other | | 2019 | | [facility] | MD Alpa [address] | | | | | ONCOLOGY CLINIC [address] | [place], [place] | | | | | [address] | [address] | | | | | [place] [address] | | | | | | [phone] | | | +--------+ + + + [...] [place] | | | | | | [place] | | | | | | [address] | | | | | | | | +--------+ + + + + documented as of this encounter Visit Diagnoses Not on filedocumented in this encounter"
--- OUTSIDE RECORDS SUMMARY | ~2019-07-16 | XMS | Encounter Summary ---
Demographics + + + | Address | [address] | | | [place] [address] | + + + | Home Phone | | + + + | Preferred Language | Unknown | + + + | Marital Status | Single | + + + | Rastafari Affiliation | Unknown | + + + | Race | Unknown | + + + | Ethnic Group | Unknown | + + + Author + + + | Author | [facility] | | | and Justiceana | + + + | Organization | [facility] | | | [...] [place] | | | | | [address] | | + + + + + Care Team Providers + +------+ + | Care Senior Center Manager Name | Role | Phone | [...] | ONCOLOGY CLINIC [address] | [place], [place] | | | | | [address] | [address] | | | | | [place] [address] | | | | | | [phone] | | | +--------+ + + + [...] [place] | | | | | | [place] | | | | | | [address] | | | | | | | | +--------+ + + + + documented as of this encounter Visit Diagnoses Not on filedocumented in this encounter"
--- OUTSIDE RECORDS SUMMARY | ~2019-07-16 | XMS | Clinical Summary ---
Demographics + + + | Address | [address] | | | [place] [address] | + + + | Home Phone | | + + + | Preferred Language | Unknown | + + + | Marital Status | Single | + + + | Advent Affiliation | Unknown | + + + | Race | Unknown | + + + | Ethnic Group | Unknown | + + + Author + + + | Author | [facility] | | | and Justiceana | + + + | Organization | [facility] | | | and [...] [place], [place] | | | | | [address] | | + + + + + Care Team Providers + +------+ + | Care Knife Sharpener Name | Role | Phone | + [...] [place] | | | | | | [address] | | | | | | | [...] + +------+ | MODA | MODA | [id number] | | [phone] | [address] | PPO | | | [address] | | [phone] | [phone] | | | | [place] | | esent | | [place], | | | | [place] | | | | [place] [address] | | +-------+--------+ +--------+ + +------+ + [...] [place] | | | 0 (Home) | [address] | + +--------+ +--------+ + + Advance Directives + + + + + | Type | Date Recorded | Patient | Explanation | | | | Sales And Marketing Coordinator | | + + + + + | Power of | | | | | Box Strapper | | | | + + + + + | Advance | | | | | Directive | | | | + + + + +
--- OUTSIDE RECORDS SUMMARY | ~2019-07-16 | XMS | Encounter Summary ---
Demographics + + + | Address | [address] | | | [place] [address] | + + + | Home Phone | | + + + | Preferred Language | Unknown | + + + | Marital Status | Single | + + + | Mormon Affiliation | Unknown | + + + | Race | Unknown | + + + | Ethnic Group | Unknown | + + + Author + + + | Author | [facility] | | | and Justiceana | + + + | Organization | [facility] | | | and Justiceana [...] [place], [place] | | | | | [address] | | + + + + + Care Team Providers + +------+ + | Care Assistant Athletic Trainer Name | Role | Phone | + [...] [address] | | | | | [phone] | [place] [address] | | +--------+ + + + + [...] [place] | | | | | | [address] | | | | | | | [...] + documented in this encounter Results [place] Node Injection wo Images (10/26/2017 11:45 AM [...]
--- OUTSIDE RECORDS SUMMARY | ~2019-07-16 | XMS | Encounter Summary ---
Demographics + + + | Address | [address] | | | [place] [address] | + + + | Home Phone | | + + + | Preferred Language | Unknown | + + + | Marital Status | Single | + + + | Jew Affiliation | Unknown | + + + | Race | Unknown | + + + | Ethnic Group | Unknown | + + + Author + + + | Author | [facility] | | | and Justiceana | + + + | Organization | [facility] | | | and Justiceana [...] [place] | | | | | [address] | | + + + + + Care Team Providers + +------+ + | Care Practice Consultant Name | Role | Phone | + +------+ + | Fely Paris | PCP | | | PA | | | + +------+ + Reason for Visit +---------+ + | Reason | Comments | +---------+ + | Testing | [facility] | +---------+ + Encounter Details +--------+ + + + + | Date | Type | Department | Care Team | Description | +--------+ + + + + | 12/19/ | Telephone | [facility] | Nneka Mendez RN | Testing ([facility] | | 2018 | | [facility] | | Genetic | | | | ONCOLOGY CLINIC [address] | | Laboratories) | | | | [address] | | | | | | [place] [address] | | | | | | [phone] | | | +--------+ + + + [...] | | | | | | [place], [place] | | | | | | [address] | | | | | | | | +--------+ + + + + documented as of this encounter Visit Diagnoses Not on filedocumented in this encounter"
--- OUTSIDE RECORDS SUMMARY | ~2019-07-16 | XMS | Encounter Summary ---
Demographics + + + | Address | [address] | | | [place] [address] | + + + | Home Phone | | + + + | Preferred Language | Unknown | + + + | Marital Status | Single | + + + | Congregation Affiliation | Unknown | + + + | Race | Unknown | + + + | Ethnic Group | Unknown | + + + Author + + + | Author | [facility] | | | and Justiceana | + + + | Organization | [facility] | | | and Justiceana [...] [place] | | | | | [address] | | + + + + + Care Team Providers + +------+ + | Care Research Nurse Name | Role | Phone | + [...] | | | site of | [address] | [place], | | | | | unspecified | [place], | [place] [address] | | | | | female | [place] | Phone: | | | | | breast (HCC) | [address] | [phone] | | | | | Left | Phone: | Fax: | | | | | Breast | [phone] | [phone] | | | | | Procedures | Fax: | | | | | | [place] OFFICE | [phone] | | | | | | OUTPATIENT | | | | | | | VISIT 25 | | | | | | | MINUTES | | | +--------+--------+ + + + + Encounter Details +--------+ + + + + | Date | Type | Department | Care Team | Description | +--------+ + + + + | 06/05/ | Hospital | [facility] | Yin Alex | Breast cancer | | 2018 | Encounter | [facility] | MD Alpa [address] | screening, high risk | | | | ONCOLOGY CLINIC [address] | [place], [place] | patient (Primary | | | | [address] [place] | [id number] | Dx); Malignant | | | | [place] [address] | | neoplasm of | | | | [phone] | | upper-outer quadrant | | | [...] Exam performed in the presence of a farm management teacher. On upright exam breasts appear symm etric [...] cleaning followed. Encouraged her to call an centrifugal wax molder for proper olga dirk of the bugs. [...] M.D. Radiation Oncologist Department of Radiation Oncology [facility] Office: [phone] CC: Patient Care Team: AMY Silver as PCP - General (Physician Asst - Certified) Mihir Davis MD as Consulting Physician (Medical Oncology) Hung Reid MD (Specialist/Technologist,Other - Costing Analyst) Yin Alex MD as Physician (Radiation Oncology) [...] | | | | | [place], [place] | | | | | | [address] | | | | | | | [...]
--- OUTSIDE RECORDS SUMMARY | ~2019-07-16 | XMS | Encounter Summary ---
Demographics + + + | Address | [address] | | | [place] [address] | + + + | Home Phone | | + + + | Preferred Language | Unknown | + + + | Marital Status | Single | + + + | Yarsani Affiliation | Unknown | + + + | Race | Unknown | + + + | Ethnic Group | Unknown | + + + Author + + + | Author | [facility] | | | and Justiceana | + + + | Organization | [facility] | | | and Justiceana | [...] [place] | | | | | [address] | | + + + + + Care Team Providers + +------+ + | Care Web Retailer Name | Role | Phone | + [...] | +--------+ + + + + | 04/23/ | Telephone | [facility] | Yin Alex | Other | | 2018 | | [facility] | MD Alpa [address] | | | | | ONCOLOGY CLINIC [address] | [place], [place] | | | | | [address] | [address] | | | | | [place] [address] | | | | | | [phone] | | | +--------+ + + + [...] [place] | | | | | | [place] | | | | | | [address] | | | | | | | | +--------+ + + + + documented as of this encounter Visit Diagnoses Not on filedocumented in this encounter"
--- OUTSIDE RECORDS SUMMARY | ~2019-07-16 | XMS | Encounter Summary ---
Demographics + + + | Address | [address] | | | [place] [address] | + + + | Home Phone [...] + + + | Author | [facility] | | | and Justiceana | + + + | Organization | [facility] | | | and [...] [place] | | | | | [address] | | + + + + + Care Team Providers + +------+ + | Care Nutritional Services Cook Name | Role | Phone | + +------+ + | Fely Paris | PCP | | | PA | | | + +------+ + Reason for Visit + + + | Reason | Comments | + + + | Psychosocial Support | | + + + Encounter Details +--------+ + + + + | Date | Type | Department | Care Team | Description | +--------+ + + + + | 01/28/ | Documentati | [facility] | Steve Lomas, | Psychosocial Support | | 2018 | on | MED CTR MEDICAL | MGMT CONSULTANT | | | | | ONCOLOGY CLINIC [address] | | | | | | [address] | | | | | | [place] [address] | | | | | | [phone] | | | +--------+ + + + [...] documented as of this encounter Progress Notes Steve Lomas MSW - 01/28/2018 4:35 PM PDTPer request, this MGMT CONSULTANT provided Jessica Patel with a [employer] gas card on January 25. She checked in for her appointment today and req uested a gas card. Called [employer] and confirmed that she is eligible for r eimbursement through them. Informed Jessica that she is to check in with [facility] to get reimbur sement from them and if it is not timely for continuing appointments then to check in about getting a gas card at the end of the week.Electronically signed by GERSON Lujan at 0 01/28/2018 4:37 PM PDTdocumented in this encounter Plan of Treatment +--------+ [...] [place] | | | | | | [address] | | | | | | | | +--------+ + + + + documented as of this encounter Visit Diagnoses Not on filedocumented in this encounter"
--- OUTSIDE RECORDS SUMMARY | ~2019-07-16 | XMS | Encounter Summary ---
Demographics + + + | Address | [address] | | | [place] [address] | + + + | Home Phone [...] + + + | Author | [facility] | | | and Justiceana | + + + | Organization | [facility] | | | and Justiceana [...] [place], [place] | | | | | [address] | | + + + + + Care Team Providers + +------+ + | Care Steel Welder Name | Role | Phone | + [...] [address] | | | | | [phone] | [place] [address] | | +--------+ + + + + [...] [place] | | | | | | [address] | | | | | | | [...]
--- OUTSIDE RECORDS SUMMARY | ~2019-07-16 | XMS | Encounter Summary ---
Demographics + + + | Address | [address] | | | [place] [address] | + + + | Home Phone | | + + + | Preferred Language | Unknown | + + + | Marital Status | Single | + + + | Hinduism Affiliation | Unknown | + + + | Race | Unknown | + + + | Ethnic Group | Unknown | + + + Author + + + | Author | [facility] | | | and Justiceana | + + + | Organization | [facility] | [...] [place] | | | | | [address] | | + + + + + Care Team Providers + +------+ + | Care Or Nurse Manager Name | Role | Phone | [...] + + | 02/07/ | Hospital | [facility] | Yin Alex | Malignant neoplasm | | 2018 | Encounter | MED CTR RADIATION | MD Alpa [address] | of upper-outer | | | | ONCOLOGY CLINIC [address] | [address] [place], [place] | quadrant of left | | | | [address] [facility] | [address] | breast in female, | | | | [place] [address] | | estrogen receptor | | | | [phone] | | positive (HCC) | | | [...] Yu[place] | | | | | | [place], [place] | | | | | | [...]
--- OUTSIDE RECORDS SUMMARY | ~2019-07-16 | XMS | Encounter Summary ---
Demographics + + + | Address | [address] | | | [place] [address] | + + + | Home Phone | | + + + | Preferred Language | Unknown | + + + | Marital Status | Single | + + + | Pentecostal Affiliation | Unknown | + + + | Race | Unknown | + + + | Ethnic Group | Unknown | + + + Author + + + | Author | [facility] | | | and Justiceana | + + + | Organization | [facility] | | | and Justiceana [...] [place] | | | | | [address] | | + + + + + Care Team Providers + +------+ + | Care Valet Service Attendant Name | Role | Phone | + +------+ + | Fely Paris | PCP | | | [place] | | | + +------+ + Encounter Details +--------+ + + + + | Date | Type | Department | Care Team | Description | +--------+ + + + + | 12/19/ | Hospital | [facility] | Yin Alex | | | 2018 | Encounter | MED CTR RADIATION | Alpa, [address] | | | | | ONCOLOGY [address] | [address] [place], [place] | | | | | [place], | [address] | | | | | [place] [address] | | | | | | [phone] | | | +--------+ + + + [...] [place] | | | | | | [address] | | | | | | | | +--------+ + + + + documented as of this encounter Visit Diagnoses Not on filedocumented in this encounter"
--- OUTSIDE RECORDS SUMMARY | ~2019-07-16 | XMS | Encounter Summary ---
Demographics + + + | Address | [address] | | | [place] [address] | + + + | Home Phone | | + + + | Preferred Language | Unknown | + + + | Marital Status | Single | + + + | Scientologist Affiliation | Unknown | + + + | Race | Unknown | + + + | Ethnic Group | Unknown | + + + Author + + + | Author | [facility] | | | and Justiceana | + + + | Organization | [facility] | | | and Justiceana [...] [place] | | | | | [address] | | + + + + + Care Team Providers + +------+ + | Care Hotel Maintenance Worker Name | Role | Phone | + +------+ + | Fely Paris | PCP | | | [place] | | | + +------+ + Encounter Details +--------+ + + + + | Date | Type | Department | Care Team | Description | +--------+ + + + + | 02/14/ | Hospital | [facility] | Yin Alex | Malignant neoplasm | | 2018 | Encounter | MED CTR MEDICAL | MD Alpa [address] | of upper-outer | | | | ONCOLOGY CLINIC [address] | [address] [place], [place] | quadrant of left | | | | [address] [place] | [address] | breast in female, | | | | [place] [address] | | estrogen receptor | | | | [phone] | | positive (HCC) | | | [...] to put her in touch with our marriage and family social worker GERSON Wilson for more information. Krupa decline [...] tuan the care of Dr. Davis in [place]. She tells me she has a follow [...] [place] | | | | | | [place], [place] | | | | | | [phone] | | | | | | | | +--------+ + + + + documented as of this encounter Visit Diagnoses + + | Diagnosis | + + | Malignant neoplasm of upper-outer quadrant of left breast in female, 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
--- OUTSIDE RECORDS SUMMARY | ~2019-07-16 | XMS | Encounter Summary ---
Demographics + + + | Address | [address] | | | [place] [address] | + + + | Home Phone | | + + + | Preferred Language | Unknown | + + + | Marital Status | Single | + + + | Jainism Affiliation | Unknown | + + + | Race | Unknown | + + + | Ethnic Group | Unknown | + + + Author + + + | Author | [facility] | | | and Justiceana | + + + | Organization | [facility] | | | and Justiceana [...] [place], [place] | | | | | [address] | | + + + + + Care Team Providers + +------+ + | Care Blind Slat Stapling Machine Operator Name | Role | Phone [...] | Radiology | Diagnoses | Abi | [facility] [address] | | | | | Malignant | Yin M, | [address] [place] | | | | | neoplasm of | MD [address] | [place], | | | | | left breast | [address] | [place] [address] | | | | | in female, | [place], | Phone: | | | | | estrogen | [place] [address] | [phone] | | | | | receptor | Phone: | Fax: | | | | | positive, | [phone] | [phone] | | | | | unspecified | Fax: | | | | | | site of | [phone] | | | | | | breast [...] + + | 01/09/ | Hospital | [facility] | Yin Alex | Malignant neoplasm | | 2018 | Encounter | MED CTR [address] | MD Alpa [address] | of left breast in | | | | [place], | [place], [place] | female, estrogen | | | | [place] [address] | [phone] | receptor positive, | | | | [phone] | | unspecified site of | | [...] | | | | | | [place], [place] | | | | | | [address] | | | | | | | [...]
--- OUTSIDE RECORDS SUMMARY | ~2019-07-16 | XMS | Encounter Summary ---
Demographics + + + | Address | [address] | | | [place] [address] | + + + | Home Phone | | + + + | Preferred Language | Unknown | + + + | Marital Status | Single | + + + | Sabianism Affiliation | Unknown | + + + | Race | Unknown | + + + | Ethnic Group | Unknown | + + + Author + + + | Author | [facility] | | | and Justiceana | + + + | Organization | [facility] | | | and Justiceana [...] [place] | | | | | [address] | | + + + + + Care Team Providers + +------+ + | Care Rock Picker Name | Role | Phone | + +------+ + | Fely Pairs | PCP | | | PA | [...] | ONCOLOGY CLINIC [address] | [address] [place], [place] | | | | | [address] [place] | [address] | | | | | [place] [address] | | | | | | [phone] | | | +--------+ + + + [...] [place] | | | | | | [place] | | | | | | [id number] | | | | | | | | +--------+ + + + + documented as of this encounter Visit Diagnoses Not on filedocumented in this encounter"
--- OUTSIDE RECORDS SUMMARY | ~2019-07-16 | XMS | Encounter Summary ---
Demographics + + + | Address | [address] | | | [place] [address] | + + + | Home Phone | | + + + | Preferred Language | Unknown | + + + | Marital Status | Single | + + + | Nondenominational Affiliation | Unknown | + + + | Race | Unknown | + + + | Ethnic Group | Unknown | + + + Author + + + | Author | [facility] | | | and Justiceana | + + + | Organization | [facility] | | | and Justiceana | [...] [place] | | | | | [address] | | + + + + + Care Team Providers + +------+ + | Care Accounting Representative Name | Role | Phone | [...] [place] | | | | | [address] [place] | [place] [address] | | | | | [place] [address] | [phone] | | | | | [phone] | | | +--------+--------+ + + + [...] | | | | | [address] [place] [place], [place] | | | | | | [address] | | | | | | | | +--------+ + + + + documented as of this encounter Visit Diagnoses Not on filedocumented in this encounter"
--- OUTSIDE RECORDS SUMMARY | ~2019-07-16 | XMS | Encounter Summary ---
Demographics + + + | Address | [address] | | | [place] [address] | + + + | Home Phone | | + + + | Preferred Language | Unknown | + + + | Marital Status | Single | + + + | Roman Catholic Affiliation | Unknown | + + + | Race | Unknown | + + + | Ethnic Group | Unknown | + + + Author + + + | Author | [facility] | | | and Justiceana | + + + | Organization | [facility] | | | and [...] [place] | | | | | [address] | | + + + + + Care Team Providers + +------+ + | Care Transformation Specialist Name | Role | Phone | [...] [place] | | | | | [address] [place] | [place] [address] | | | | | [place] [address] | [phone] | | | | | [phone] | | | +--------+--------+ + + + [...] | | | | | [address] [place], [place] | | | | | | [address] | | | | | | | | +--------+ + + + + documented as of this encounter Visit Diagnoses + + | Diagnosis | + + | Malignant neoplasm of upper-outer quadrant of left breast in female, 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
--- OUTSIDE RECORDS SUMMARY | ~2019-07-16 | XMS | Encounter Summary ---
Demographics + + + | Address | [address] | | | [place] [address] | + + + | Home Phone | | + + + | Preferred Language | Unknown | + + + | Marital Status | Single | + + + | Christianity Affiliation | Unknown | + + + | Race | Unknown | + + + | Ethnic Group | Unknown | + + + Author + + + | Author | [facility] | | | and Justiceana | + + + | Organization | [facility] | | | [...] [place], [place] | | | | | [address] | | + + + + + Care Team Providers + +------+ + | Care Loaders Name | Role | Phone | + [...] [address] | | | | | [phone] | [place] [address] | | +--------+ + + + + [...] [place] | | | | | | [address] | | | | | | | | +--------+ + + + + documented as of this encounter Procedures + +--------+ + + + | Procedure Name | Priori | Date/Time | Associated Diagnosis | Comments | | | ty | | | | + +--------+ + + + | KASSIDY DIGITAL | Routin | 02/09/2016 | | Results for this | | SCREENING BILATERAL | e | 11:25 AM | | procedure are in the | | | | PDT | | results section. | + +--------+ + + + documented in this encounter Results KASSIDY Digital Screening Bilateral (02/09/2016 11:25 AM PDT) + + | Specimen | [...]
--- OUTSIDE RECORDS SUMMARY | ~2019-07-16 | XMS | Encounter Summary ---
Demographics + + + | Address | [address] | | | [place] [address] | + + + | Home Phone [...] Author + + + | Author | [facility] | | | and Justiceana | + + + | Organization | [facility] | | | and Justiceana [...] [place] | | | | | [address] | | + + + + + Care Team Providers + +------+ + | Care Marine Design Engineer Name | Role | Phone | + +------+ + | Fely Paris | PCP | | | [place] | | | + +------+ + Encounter Details +--------+ + + + + | Date | Type | Department | Care Team | Description | +--------+ + + + + | 01/23/ | Hospital | [facility] | Yni Alex | | | 2018 | Encounter | MED CTR RADIATION | [place], [address] | | | | | ONCOLOGY [address] | [address] [place], [place] | | | | | [place], | [address] | | | | | [place] [address] | | | | | | [phone] | | | +--------+ + + + [...] [place] | | | | | | [address] | | | | | | | | +--------+ + + + + documented as of this encounter Visit Diagnoses Not on filedocumented in this encounter"
--- OUTSIDE RECORDS SUMMARY | ~2019-07-16 | XMS | Encounter Summary ---
Demographics + + + | Address | [address] | | | [place] [address] | + + + | Home Phone | | + + + | Preferred Language | Unknown | + + + | Marital Status | Single | + + + | Church Affiliation | Unknown | + + + | Race | Unknown | + + + | Ethnic Group | Unknown | + + + Author + + + | Author | [facility] | | | and Justiceana | + + + | Organization | [facility] [...] [place] | | | | | [address] | | + + + + + Care Team Providers + +------+ + | Care E Commerce Web Developer Name | Role | Phone | + +------+ + | Fely Paris | PCP | | | [place] | | | + +------+ + Reason for Visit + + + | Reason | Comments | + + + | Breast Cancer | | + + + | Under Treatment | | + + + Encounter Details +--------+ + + + + | Date | Type | Department | Care Team | Description | +--------+ + + + + | 02/14/ | Hospital | [facility] | Yin Alex | Malignant neoplasm | | 2018 | Encounter | MED CTR RADIATION | MD Alpa [address] | of upper-outer | | | | ONCOLOGY CLINIC [address] | [place], [place] | quadrant of left | | | | [address] [place] | [address] | breast in female, | | | | [place] [address] | | estrogen receptor | | | | [phone] | | positive (HCC) | | | [...] + + + | Blood Pressure | 138/87 | 02/14/2018 11:27 AM | | | | | PDT | | + + + + + | Pulse | 70 | 02/14/2018 11:27 AM | | | | | PDT | | + + + + + | Temperature | 36.8 C (98.2 F) | 02/14/2018 11:27 AM | | | | | PDT | | + + + + + | Respiratory Rate | 16 | 02/14/2018 11:27 AM | | | | | PDT | | + + + + + | Oxygen Saturation | 97% | 02/14/2018 11:27 AM | | | | | PDT | | + + + + + | Inhaled Oxygen | - | - | | | Concentration | | | | + + + + + | Weight | 108.1 kg (238 lb 5.1 | 02/14/2018 11:27 AM | | | | oz) | PDT | | + + + + + | Height | - | - | | + + + + + | Body Mass Index | 43.3 | 12/19/2017 12:43 PM | | | [...] encounter Progress Notes Yin Patterson MD - 02/14/2018 11:28 AM PDT Radiation Oncology Weekly On Treatment Note Diagnosis: ICD-10-CM ICD-9-CM 1. Malignant neoplasm of upper-outer quadrant of left breast in female, estrogen receptor p ositive (HCC) C50.412 174.4 Z17.0 V86.0 Reason for visit: On treatment evaluation Radiation technical factors: Dose Delivered Dose Planned Fractions Delivered 4005 cGy Boost 800 cGy 4005 cGy 1000 cGy 11/22 Images were reviewed this week and results [...] Pain Level: PAIN PROG PAIN LEVEL: 0 Pain Quality: NA Current pain regimen: NA Wt Readings from Last 3 Encounters: 02/14/18 108.1 kg (238 lb 5.1 oz) 02/07/18 110.4 kg (243 lb 6.2 oz) 01/31/18 111.2 kg (245 lb 2.4 oz) Vitals: 02/14/18 1127 BP: 138/87 Pulse: 70 Resp: 16 Temp: 36.8 C (98.2 F) TempSrc: Tympanic SpO2: 97% Weight: 108.1 kg (238 lb 5.1 oz) Physical Exam Constitutional: She appears well-developed and well-nourished. Neurological: She is alert. Skin: No rash noted. There is erythema (Grade 2 erythema in treatment area). Psychiatric: She has a normal mood and affect. Physician Assessment: Krupa is scheduled to complete radiation treatment tomorrow. She has done extremely well w ith therapy. Reports minimal fatigue. Mild skin irritation. Exam demonstrates grade 2 luis thema, no desquamation. Lumpectomy incision has remained closed. No signs of infection. Toxicities reviewed in nursing note. Disposition: Continue radiation treatment as planned. Continue to follow with Dr. Davis as directed for ongoing endocrine therapy, she is t aking tamoxifen. Survivorship summary and counseling provided by nursing staff. Follow-up with me in 3 months, sooner if needed. Continue skin care with emollient lotion. I also recommend breast massage to limit hyperse nsitivity and arm stretching to limit axillary tightness. Scar massage will also help decre ase fibrosis. She is undergone occupational therapy screening, does not feel that she has n eeds for ongoing occupational therapy treatment. Initial surveillance plan of exams every 4-6 months and annual mammograms. Clinical evalua tion to alternate between providers Yin Ricci MD Radiation Oncologist Germaine Garrison RN - 02/14/2018 11:27 AM PDT 02/14/18 1126 Gastrointestinal Constipation 0 - Grade 0 Diarrhea 0 - Grade 0 Nausea 0 - Grade 0 Vomiting 0 - Grade 0 General Disorders and Administration Site Conditions Fatigue 1 - Grade 1 Respiratory Thoracic and Mediastinal Cough 0 - Grade 0 Dyspnea 0 - Grade 0 Skin and Subcutaneous Tissue Palmar-Plantar Erythrodysesthesia Syndrome 0 - Grade 0 (patient states "some redness" denies pain.) Performance Status Karnofsky Performance Score 100% documented in this encounter Plan of Treatment +--------+ + + + + | Date | Type | Specialty | Care Team | Description | +--------+ + + + + | 06/09/ | Appointment | Radiation Oncology | Yin Alex | | | 2019 | | | MD [address] | | | | | | [place], [place] | | | | | | [id number] | | | | | | | | +--------+ + + + + documented as of this encounter Visit Diagnoses + + | Diagnosis | + + | Malignant neoplasm of upper-outer quadrant of left breast in female, 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
--- OUTSIDE RECORDS SUMMARY | ~2019-07-16 | XMS | Encounter Summary ---
Demographics + + + | Address | [address] | | | [place] [address] | + + + | Home Phone | | + + + | Preferred Language | Unknown | + + + | Marital Status | Single | + + + | Bahai Affiliation | Unknown | + + + | Race | Unknown | + + + | Ethnic Group | Unknown | + + + Author + + + | Author | [facility] | | | and Justiceana | + + + | Organization | [facility] | | | and [...] [place], [place] | | | | | [address] | | + + + + + Care Team Providers + +------+ + | Care Fingernail Technician Name | Role | Phone | + [...] [address] | | | | | [phone] | [place] [address] | | +--------+ + + + + [...] | Appointment | Radiation Oncology | Yin Aelx | | | 2019 | | | MD [address]pa [address] | | | | | | [place] | | | | | | [address] | | | | | | | [...]
--- OUTSIDE RECORDS SUMMARY | ~2019-07-16 | XMS | Encounter Summary ---
Demographics + + + | Address | [address] | | | [place] [address] | + + + | Home Phone | | + + + | Preferred Language | Unknown | + + + | Marital Status | Single | + + + | Cheondoism Affiliation | Unknown | + + + | Race | Unknown | + + + | Ethnic Group | Unknown | + + + Author + + + | Author | [facility] | | | and Justiceana | + + + | Organization | [facility] | [...] [place] | | | | | [address] | | + + + + + Care Team Providers + +------+ + | Care Head Of Art Name | Role | Phone | + [...] + + | 02/14/ | Hospital | [facility] | Yin Alex | Malignant neoplasm | | 2018 | Encounter | MED CTR RADIATION | MD [place] [address] | of upper-outer | | | | ONCOLOGY CLINIC [address] | [address] [place], [place] | quadrant of left | | | | [address] [place] [facility] | [address] | breast in female, | | | | [place] [address] | | estrogen receptor | | | | [phone] | | positive (HCC) | | | [...] [place] | | | | | | [place], [place] | | | | | | [id number] | | | | | | | | +--------+ + + + + documented as of this encounter Visit Diagnoses + + | Diagnosis | + + | Malignant neoplasm of upper-outer quadrant of left breast in female, 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
--- OUTSIDE RECORDS SUMMARY | ~2019-07-16 | XMS | Encounter Summary ---
Demographics + + + | Address | [address] | | | [place] [address] | + + + | Home Phone | | + + + | Preferred Language | Unknown | + + + | Marital Status | Single | + + + | Gnosticist Affiliation | Unknown | + + + | Race | Unknown | + + + | Ethnic Group | Unknown | + + + Author + + + | Author | [facility] | | | and Justiceana | + + + | Organization | [facility] | | | and Justiceana | [...] [place] | | | | | [address] | | + + + + + Care Team Providers + +------+ + | Care Turn Down Attendant Name | Role | Phone | + +------+ + | Fely Paris | PCP | | | [place] | | | + +------+ + Reason for Visit +---------+ + | Reason | Comments | +---------+ + | Testing | [facility] | +---------+ + Encounter Details [...] | | | | | | [place] [address] | | | | | | [phone] | | | +--------+ + + + [...] | | | | | | [place], [place] | | | | | | [address] | | | | | | | | +--------+ + + + + documented as of this encounter Visit Diagnoses Not on filedocumented in this encounter"
--- OUTSIDE RECORDS SUMMARY | ~2019-07-16 | XMS | Encounter Summary ---
Demographics + + + | Address | [address] | | | [place] [address] | + + + | Home Phone [...] | Author | [facility] | | | and Justiceana | + + + | Organization | [facility] | | | and [...] [place] | | | | | [address] | | + + + + + Care Team Providers + +------+ + | Care Paper Folder Name | Role | Phone | + [...] | ONCOLOGY CLINIC [address] | [address] [place], [place] | | | | | [address] [place] [address] [place] | [address] | | | | | [place] [address] | | | | | | [phone] | | | +--------+ + + + [...] [place] | | | | | | [place] | | | | | | [address] | | | | | | | | +--------+ + + + + documented as of this encounter Visit Diagnoses Not on filedocumented in this encounter"
--- OUTSIDE RECORDS SUMMARY | ~2019-07-16 | XMS | Encounter Summary ---
Demographics + + + | Address | [address] | | | [place] [address] | + + + | Home Phone [...] Author | [facility] | | | and Justiceana | + + + | Organization | [facility] | | | and Justiceana | + + + | Address | Unknown | + + + | Phone | Unavailable | + + + Support + + + + + | Name | Relationship | Address | Phone | + + + + + | Orly Patel | ECON | [address] | | | | | [place] | | | | | [address] | | + + + + + Care Team Providers + +------+ + | Care Dope Maintenance Worker Name | Role | Phone | + +------+ + | Fely Paris | PCP | | | [place] | | | + +------+ + Encounter Details +--------+ + + + + | Date | Type | Department | Care Team | Description | +--------+ + + + + | 12/19/ | Hospital | [facility] | Yin Alex | | | 2018 | Encounter | MED CTR RADIATION | [address], [address] | | | | | ONCOLOGY [address] [place], [place] | | | | | [place], | [address] | | | | | [place] [address] | | | | | | [phone] | | | +--------+ + + + [...] [place] | | | | | | [address] | | | | | | | | +--------+ + + + + documented as of this encounter Visit Diagnoses Not on filedocumented in this encounter"
--- OUTSIDE RECORDS SUMMARY | ~2019-07-16 | XMS | Encounter Summary ---
Demographics + + + | Address | [address] | | | [place] [address] | + + + | Home Phone | | + + + | Preferred Language | Unknown | + + + | Marital Status | Single | + + + | Synagogue Affiliation | Unknown | + + + | Race | Unknown | + + + | Ethnic Group | Unknown | + + + Author + + + | Author | [facility] | | | and Justiceana | + + + | Organization | [facility] | | | and Justiceana [...] [place] | | | | | [address] | | + + + + + Care Team Providers + +------+ + | Care Forensic Photographer Name | Role | Phone | + [...] | | | neoplasm of | [address] | [place], | | | | | unspecified | [place], | [place] [address] | | | | | site of | [place] | Phone: | | | | | unspecified | [address] | [phone] | | | | | female | Phone: | Fax: | | | | | breast (HCC) | [phone] | [phone] | | | | | Procedures | Fax: | | | | | | [address] | [phone] | | + +--------+ + + + + Encounter Details +--------+ + + + + | Date | Type | Department | Care Team | Description | +--------+ + + + + | 06/09/ | Hospital | [facility] | Yin Alex | Malignant neoplasm | | 2019 | Encounter | [facility] | MD Alpa [address] | of upper-outer | | | | ONCOLOGY CLINIC [address] | [place], [place] | quadrant of left | | | | [address] [place] | [address] | breast in female, | | | | [place] [address] | | estrogen receptor | | | | [phone] | | positive (HCC) | | | [...] to be don e in 09/2019 at . Continue with follow up appointments with Dr. [...] mg daily, follows with Dr. Davis in [place]. Review of systems: Constitutional: Reports energy levels [...] Exam performed in the presence of a post acute care registered nurse. On upright exam breasts appear symm etric [...] relevant imaging reports: 10/04/2018- mammogram done at [facility]. Benign, BIRADS-2 Assessment: ICD-10-CM ICD-9-CM 1. Malignant [...] mammogram to be done in 09/2019 at . Continue with follow up appointments with Dr. Davis (12/03/2019) Schedule for one year follow up with Dr. Alex. Self-care recommendations: sleep & exercise Thank you for allowing me to participate in the care of Jessica Patel. If you should nunez ve any questions regarding this evaluation, please do not hesitate to contact me. Yin Alex M.D. Radiation Oncologist Department of Radiation Oncology [facility] Office: [phone] signed by Yin Alex MD at 07/13/2019 [...] [place] | | | | | | [address] | | | | | | | [...]
--- OUTSIDE RECORDS SUMMARY | ~2019-07-16 | XMS | Encounter Summary ---
Demographics + + + | Address | [address] | | | [place] [address] | + + + | Home Phone | | + + + | Preferred Language | Unknown | + + + | Marital Status | Single | + + + | Nondenominational Affiliation | Unknown | + + + | Race | Unknown | + + + | Ethnic Group | Unknown | + + + Author + + + | Author | [facility] | | | and Justiceana | + + + | Organization | [facility] | | | and Justiceana | [...] [place], [place] | | | | | [address] | | + + + + + Care Team Providers + +------+ + | Care Campaign Marketing Specialist Name | Role | Phone | [...] [place] | | | | | [phone] | [place] [address] | | +--------+ + + + + [...] [place] | | | | | | [address] | | | | | | | [...]
--- OUTSIDE RECORDS SUMMARY | ~2019-07-16 | XMS | Encounter Summary ---
Demographics + + + | Address | [address] | | | [place] [address] | + + + | Home Phone [...] Author | [facility] | | | and Justiceana | + + + | Organization | [facility] | | [...] [place] | | | | | [address] | | + + + + + Care Team Providers + +------+ + | Care Hat Copyist Name | Role | Phone | + [...] + + | 01/31/ | Hospital | [facility] | Yin Alex | Malignant neoplasm | | 2018 | Encounter | MED CTR RADIATION | MD Alpa [address] | of upper-outer | | | | ONCOLOGY CLINIC [address] | [place], [place] | quadrant of left | | | | [address] [facility] | [address] | breast in female, | | | | [place] [address] | | estrogen receptor | | | | [phone] | | positive (HCC) | | | [...] [place] | | | | | | [place], [place] | | | | | | [id number] | | | | | | | | +--------+ + + + + documented as of this encounter Visit Diagnoses + + | Diagnosis | + + | Malignant neoplasm of upper-outer quadrant of left breast in female, 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
--- OUTSIDE RECORDS SUMMARY | ~2019-07-16 | XMS | Encounter Summary ---
Demographics + + + | Address | [address] | | | [place] [address] | + + + | Home Phone | | + + + | Preferred Language | Unknown | + + + | Marital Status | Single | + + + | Zoroastrianism Affiliation | Unknown | + + + | Race | Unknown | + + + | Ethnic Group | Unknown | + + + Author + + + | Author | [facility] | | | and Justiceana | + + + | Organization | [facility] | | | and [...] [place] | | | | | [address] | | + + + + + Care Team Providers + +------+ + | Care District Manager Major Accounts Sales Name | Role | Phone | + [...] | ONCOLOGY CLINIC [address] | [address] [place], [place] | | | | | [place] | [address] | | | | | [place] [address] | | | | | | [phone] | | | +--------+ + + + [...] [place] | | | | | | [place] | | | | | | [id number] | | | | | | | | +--------+ + + + + documented as of this encounter Visit Diagnoses Not on filedocumented in this encounter"
--- OUTSIDE RECORDS SUMMARY | ~2019-07-16 | XMS | Encounter Summary ---
Demographics + + + | Address | [address] | | | [place] [address] | + + + | Home Phone | | + + + | Preferred Language | Unknown | + + + | Marital Status | Single | + + + | Buddhism Affiliation | Unknown | + + + | Race | Unknown | + + + | Ethnic Group | Unknown | + + + Author + + + | Author | [facility] | | | and Justiceana | + + + | Organization | [facility] | | | and [...] [place] | | | | | [address] | | + + + + + Care Team Providers + +------+ + | Care House Officer Name | Role | Phone | + +------+ + | Fely Paris | PCP | | | [place] | | | + +------+ + Encounter Details +--------+ + + + + | Date | Type | Department | Care Team | Description | +--------+ + + + + | 12/23/ | Hospital | [facility] | Yin Alex | | | 2018 | Encounter | MED CTR RADIATION | Al[place], [address] | | | | | ONCOLOGY [address] | [address] [place], [place] | | | | | [place], | [address] | | | | | [place] [address] | | | | | | [phone] | | | +--------+ + + + [...] [place] | | | | | | [address] | | | | | | | | +--------+ + + + + documented as of this encounter Visit Diagnoses Not on filedocumented in this encounter"
--- OUTSIDE RECORDS SUMMARY | ~2019-07-16 | XMS | Encounter Summary ---
Demographics + + + | Address | [address] | | | [place] [address] | + + + | Home Phone [...] + | Author | [facility] | | | and Justiceana | + + + | Organization | [facility] | | | and Justiceana [...] [place], [place] | | | | | [address] | | + + + + + Care Team Providers + +------+ + | Care Chocolate Molder Name | Role | Phone | + [...] | Malignant | Yin M, | [address] [place] | | | | | neoplasm of | MD [address] | [place], | | | | | left breast | [address] | [place] [address] | | | | | in female, | [place], | Phone: | | | | | estrogen | [place] [address] | [phone] | | | | | receptor | Phone: | Fax: | | | | | positive, | [phone] | [phone] | | | | | unspecified | Fax: | | | | | | site of | [phone] | | | | | | breast [...] | 01/09/ | Orders Only | [facility] | Yin Alex | Malignant neoplasm | | 2018 | | MED CTR RADIATION | MD [place] | of left breast in | | | | ONCOLOGY CLINIC [address] | [address] [place], [place] | female, estrogen | | | | [address] [place] | [address] | receptor positive, | | | | [place] [address] | | unspecified site of | | | | [phone] | | breast (HCC) | | | [...] [place] | | | | | | [place], [place] | | | | | | [address] | | | | | | | [...]
--- OUTSIDE RECORDS SUMMARY | ~2019-07-16 | XMS | Encounter Summary ---
Demographics + + + | Address | [address] | | | [place] [address] | + + + | Home Phone | | + + + | Preferred Language | Unknown | + + + | Marital Status | Single | + + + | Cheondoism Affiliation | Unknown | + + + | Race | Unknown | + + + | Ethnic Group | Unknown | + + + Author + + + | Author | [facility] | | | and Justiceana | + + + | Organization | [facility] | | | and Justiceana [...] [place] | | | | | [address] | | + + + + + Care Team Providers + +------+ + | Care Fleet Sales Manager Name | Role | Phone | [...] + | 01/28/ | Documentati | [facility] | Steve Lomas, | Psychosocial Support | | 2018 | on | MED CTR MEDICAL | [employer] | | | | | ONCOLOGY CLINIC [address] | | | | | | [address] | | | | | | [place] [address] | | | | | | [phone] | | | +--------+ + + + [...] - 01/28/2018 4:35 PM PDTPer request, this [employer] provided Jessica Patel with a [employer] gas card on January 25. She checked in for her appointment today and req uested a gas card. Called [employer] and confirmed that she is eligible [...] [place] | | | | | | [id number] | | | | | | | | +--------+ + + + + documented as of this encounter Visit Diagnoses Not on filedocumented in this encounter"
--- OUTSIDE RECORDS SUMMARY | ~2019-07-16 | XMS | Encounter Summary ---
Demographics + + + | Address | [address] | | | [place] [address] | + + + | Home Phone | | + + + | Preferred Language | Unknown | + + + | Marital Status | Single | + + + | Rastafari Affiliation | Unknown | + + + | Race | Unknown | + + + | Ethnic Group | Unknown | + + + Author + + + | Author | [facility] | | | and Justiceana | + + + | Organization | [facility] [...] [place] | | | | | [address] | | + + + + + Care Team Providers + +------+ + | Care Engineering Clerk Name | Role | Phone | + +------+ + | Fely Paris | PCP | | | [place] | | | + +------+ + Encounter Details +--------+ + + + + | Date | Type | Department | Care Team | Description | +--------+ + + + + | 01/23/ | Hospital | [facility] | Yin Alex | | | 2018 | Encounter | MED CTR RADIATION | [address], [address] | | | | | ONCOLOGY [address] [place], [place] | | | | | [place], | [address] | | | | | [place] [address] | | | | | | [phone] | | | +--------+ + + + [...] [place] | | | | | | [address] | | | | | | | | +--------+ + + + + documented as of this encounter Visit Diagnoses Not on filedocumented in this encounter"
--- OUTSIDE RECORDS SUMMARY | ~2019-07-16 | XMS | Encounter Summary ---
Demographics + + + | Address | [address] | | | [place] [address] | + + + | Home Phone | | + + + | Preferred Language | Unknown | + + + | Marital Status | Single | + + + | Mu-Ism Affiliation | Unknown | + + + | Race | Unknown | + + + | Ethnic Group | Unknown | + + + Author + + + | Author | [facility] | | | and Justiceana | + + + | Organization | [facility] | | | and [...] [place], [place] | | | | | [address] | | + + + + + Care Team Providers + +------+ + | Care Hazardous Waste Management Specialist Name | Role | Phone | [...] Isaac BREONNA | | | | | [phone] | [place] [address] | | +--------+ + + + + [...] [place] | | | | | | [address] | | | | | | | [...]
[~2019-07-16 21:29] MED LIST changes: +CLEOCIN HCL300 MG PO; +MULTI VITAMIN1 EACH PO; +MUPIROCIN22 GM TOP; +SLEEP AID25 M1 PO; +SODIUM CHLORI1000 ML IRRIGATION; +TAMOXIFEN CITRA20 MG PO; +VITAMIN D1000 UNIT PO; +VITAMIN D250000 UNIT PO
== END 2019-07-16 22:50 | disposition home or self-care (01) ==
LOC: ED 21:29
DX: S93.402A Sprain of unspecified ligament of left ankle, initial encounter (principal); W17.2XXA Fall into hole, initial encounter; Z85.3 Personal history of malignant neoplasm of breast; Z88.5 Allergy status to narcotic agent; Z79.899 Other long term (current) drug therapy
CPT/HCPCS: 73610; 99283-25

== ENCOUNTER 2022-10-13 07:10 | Day surgery (SDC) | payer OTHER ==
[~2022-10-13] VITALS: Ht 157.5 cm; Wt 91.8 kg
[~2022-10-13 07:10] MED LIST changes: +NORVASC5 MG PO
[2022-10-13] MEDS ORDERED: TRAMADOL HCL50 MG PO (09:24)
[2022-10-13] MEDS ORDERED: DICLOFENAC SODI75 MG PO (09:25)
--- NOTE | 2022-10-13 09:29 | NUR ---
10/13/22 0929 Angela Etienne 0923- PT ARRIVES TO PACU REACTIVE TO VOICE. PT REPORTS NO PAIN OR NAUSEA. PT INSTANTLY FALLS BACK TO SLEEP WHEN NOT BEING STIMULATED. RESP EVEN AND UNLABORED. OXYGEN SAT MID TO HIGH 90'S ON RA. PT'S LEFT LEG ELEVATED ON A PILLOW. ICE PACK APPLIED WITH DRESSING IN BETWEEN SKIN AND ICE PACK.
--- NOTE | 2022-10-13 09:56 | NUR ---
LE 0939: PT IS BACK TO DS FROM PACU. SHE IS AWAKE AND ALERT. TOLERATING WATER. PAIN RATING 4/10 TOLERABLE. SHE WOULD LIKE SOME JELLO TO SNACK ON. CALL LIGHT WITHIN REACH. NO ADDITIONAL NEEDS OR CONCERNS. DC CRITERIA IS REVIEWED WITH PT.
--- NOTE | 2022-10-13 10:52 | NUR ---
WILMER 1045: PT TURNS MEDIA ARTS PROFESSOR LIGHT TO USE THE BATHROOM. SHE IS ABLE TO WALK INDEPENDENTLY TOO AND FROM THE BATHROOM. SHE DENIES PAIN AT THIS TIME. SHE HAS MET ALL DC CRITERIA. SHE IS EDUCATED ON HOW TO BEST DRESS HERSELF AND TO OPEN CURTAIN WHEN READY.
--- NOTE | 2022-10-13 11:03 | OR ---
[facility] [address] [place], [place] [address] Signed DATE OF OPERATION: 10/13/2022 SURGEON: Lion Harrell MD PREOPERATIVE DIAGNOSIS: Medial meniscus tear, left knee. POSTOPERATIVE DIAGNOSES: 1. Medial meniscus tear, left knee. 2. Large chondral flaps medial and lateral distal femoral condyle. 3. Large loose body lateral compartment. PROCEDURES PERFORMED: 1. Left knee arthroscopy with partial medial meniscectomy, debridement of chondral flaps medial and lateral compartments. 2. Removal of loose body. BULKER: None. ANESTHESIA: General. BLOOD LOSS: Minimal. BRIEF HISTORY: Jessica is a 47-year-old female with pain and catching as well as some locking in her knee. MRI is consistent with the above. The risks and benefits of operative treatment were discussed with her and she elected to proceed. Once consent was obtained, she was taken to the operating room. After adequate anesthesia, she was placed on the operating room table. All downside pressure points were well padded. The right leg was flexed, abducted and externally rotated on a well-padded leg higgins. Left was placed in well-padded proximal thigh leg higgins with no tourniquet. The leg was then prepped and draped in a standard sterile fashion. Portal sites were injected with 0.25% Marcaine with epinephrine. The standard inferolateral and superolateral portals were made and the scope was introduced in the knee. ARTHROSCOPIC FINDINGS: The knee showed moderate synovitis throughout. There was significant synovitis Electronically Signed By: LION HARRELL MD 10/13/22 1103 PATIENT NAME: JESSICA HOWARD OPERATIVE REPORT DATE OF : 75 REPORT #: [id number] PHYSICIAN: LION HARRELL MD PCP: YOLANDA GUERRA PAC REPORT IS CONFIDENTIAL AND NOT TO BE RELEASED WITHOUT AUTHORIZATION [facility] [address], [place] [address] Signed throughout the knee. The patella was noted to track well with minimal compression. 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 The medial and lateral gutters were clear. ACL and PCL were intact. Medial compartment showed a posteromedial meniscus tear. There were three large chondral flaps with grade 3 chondromalacia throughout 50% of the femoral condyle. The lateral compartment showed no meniscus tear. However, there were again two large chondral flaps in the lateral femoral condyle. These measured at least a cm and were loose. There was a large loose body embedded in the tibial cartilage posteriorly. This measured 6 x 9 mm. DESCRIPTION OF THE OPERATION: The diagnostic arthroscopy was undertaken as noted above. Standard inferomedial portal was made after localization using a spinal needle. The medial meniscus was debrided using straight biters and then the shaver. The shaver was then used to trim the chondral flaps on the femur. Attention was then turned to the posterolateral aspect of the knee where the chondral flaps were removed from the lateral compartment using the shaver. A large grasper was then used to grasp the loose body which was truly loose, but again embedded in the tibial cartilage posteriorly. This was removed through the medial portal. The debris was then evacuated using the shaver and the knee was flushed out. The scope was withdrawn. Portals were closed with 3-0 nylon and dressed with Adaptic, ABD, and Vitor wrap. She tolerated the procedure well. All sponge, needle, and instrument counts were correct. Lion Harrell MD BA/SCOTTL /[id number] Copies: ~ Electronically Signed By: LION HARRELL MD 10/13/22 1103 PATIENT NAME: JESSICA HOWARD OPERATIVE REPORT DATE OF : 75 REPORT #: [id number] PHYSICIAN: LION HARRELL MD PCP: YOLANDA GUERRA PAC REPORT IS CONFIDENTIAL AND NOT TO BE RELEASED WITHOUT AUTHORIZATION
--- NOTE | 2022-10-13 11:11 | NUR ---
LE 1104: PT IS GIVEN VERBAL AND WRITTEN DC INSTRUCTIONS. QUESITONS ARE ASKED AND ANSWERED. PT'S RIDE IS CALLED AND NOTIFIED THAT SHE IS READY TO DC. WILL TAKE HER TO VEHICLE WHEN THEY ARE ARRIVE.
== END 2022-10-13 11:05 | disposition home or self-care (01) ==
LOC: DS 07:10
PROVIDERS: ATTEND Specialist
PROC: 0SBD4ZZ Excision of Left Knee Joint, Percutaneous Endoscopic Approach (ICD-10-PCS; principal; 2022-10-13 09:00)
DX: S83.242A Other tear of medial meniscus, current injury, left knee, initial encounter (principal); M17.12 Unilateral primary osteoarthritis, left knee; I10 Essential (primary) hypertension; Z85.3 Personal history of malignant neoplasm of breast
CPT/HCPCS: 84703; J0690; J1100; J1885; J2001; J2405; J2704; J3010; J7121

== ENCOUNTER 2023-07-28 23:15 | Emergency (ER) | payer OTHER ==
[~2023-07-28] VITALS: Ht 157.5 cm; Wt 96.3 kg
[~2023-07-28 23:15] MED LIST changes: +DICLOFENAC SODI75 MG PO; +TRAMADOL HCL50 MG PO
[2023-07-29 00:33] VITALS: BP 143/90
== END 2023-07-29 00:33 | disposition home or self-care (01) ==
LOC: ED 23:15
DX: M23.92 Unspecified internal derangement of left knee (principal); Z88.5 Allergy status to narcotic agent; Z88.6 Allergy status to analgesic agent; Z88.8 Allergy status to other drugs, medicaments and biological substances; Z91.048 Other nonmedicinal substance allergy status; Z79.899 Other long term (current) drug therapy
CPT/HCPCS: 73560; 99283-25